=== PATIENT | female | born 1995 | race Two or more races ===

== ENCOUNTER 2020-09-15 08:32 | Outpatient (REF) | payer OTHER, SELFPAY ==
--- NOTE | 2020-09-15 08:38 | US_ITS ---
EXAMINATION: US ABDOMEN COMPLETE CLINICAL INFORMATION: Unspecified abdominal pain. COMPARISON: None TECHNIQUE: Real-time imaging of the abdominal viscera. FINDINGS: PANCREAS: Normal. The visualized pancreatic head and body are normal in appearance. The remainder of the pancreas is obscured from visualization by the overlying bowel gas. ABDOMINAL AORTA: The proximal, mid, and distal segments are normal in caliber. INFERIOR VENA CAVA: Visualized portions are normal. LIVER: There is diffuse increased liver parenchymal echogenicity. No focal hepatic mass is seen. The liver is normal in size and contour. No biliary ductal dilatation. GALLBLADDER: Surgically absent. COMMON BILE DUCT: Normal in caliber measuring 0.3 cm in diameter. RIGHT KIDNEY: Normal. No hydronephrosis. No renal calculi or focal parenchymal lesions. The kidney measures 12.4 cm in maximum dimension. LEFT KIDNEY: At the lower pole, a 4 mm calculus is seen, with twinkle artifact. No hydronephrosis or focal parenchymal lesions. The kidney measures 11.5 cm in maximum dimension. SPLEEN: Normal. The spleen measures 9.6 cm in maximum dimension. FREE FLUID: None. US/US abdomen complete IMPRESSION: 1. There is generalized increase in hepatic echotexture, consistent with fatty infiltration or hepatocellular disease. Please correlate clinically. No focal hepatic mass or intrahepatic biliary dilatation is seen. 2. A 4 mm nonobstructing left renal calculus is seen. No right renal calculus is seen. There is no hydronephrosis bilaterally. 3. Technically limited ultrasound examination of the distal pancreas.
[2020-09-15 10:09] LABS: MANUAL DIFF FLAG NO
[2020-09-15 10:17] LABS: Basophils Percent Auto 0.1 % (0-2); Eosinophils Percent Auto 0.4 % (0-4); Hematocrit 42.2 % (37-47); Hemoglobin 14.5 g/dl (12.0-16.0); Imm Gran Abs Auto 0.02 X10*3/uL (0.00-0.03); Imm Gran Pct Auto 0.2 % (0.0-0.4); Lymphocytes Absolute Auto 1.8 X10*3/uL (1.2-4.9); Lymphocytes Percent Auto 22.3 % (20-40); Mean Corpuscular HGB Conc 34.4 g/dl (31.0-35.0); Mean Corpuscular Hemoglobin 28.8 pg (27.0-33.0); Mean Corpuscular Volume 83.7 fL (80-98); Mean Platelet Volume 12.6 fL (9.4-12.3); Monocytes Absolute Auto 0.6 X10*3/uL (0.1-1.2); Monocytes Percent Auto 6.8 % (2-11); Neutrophils Absolute Auto 5.7 X10*3/uL (2.0-8.3); Neutrophils Percent Auto 70.2 % (45-73); Platelet Count 214 X10*3/uL (160-400); Red Blood Count 5.04 X10*6/uL (4.20-5.50); Red Cell Distribution Width 12.7 % (11.0-16.0); White Blood Count 8.1 X10*3/uL (4.8-10.8)
[2020-09-15 10:51] LABS: Alanine Aminotransferase 36 U/L (0-31); Albumin Level 4.4 g/dL (3.5-5.0); Alkaline Phosphatase 130 U/L (39-117); Anion Gap 11 (12-20); Aspartate Amino Transferase 31 U/L (5-31); Bilirubin Total 1.3 mg/dL (0.0-1.0); Blood Urea Nitrogen 9 mg/dL (9-16); Calcium 9.2 mg/dL (8.4-10.2); Carbon Dioxide 29 mmol/L (22-29); Chloride 105 mmol/L (96-108); Cholesterol 131 mg/dL; Estimated Glomerular Filt Rate > 60; Glucose Fasting 84 mg/dL (60-99); HDL Cholesterol 55 mg/dL; LDL Cholesterol Calculated 62 mg/dl; Potassium 4.4 mmol/l (3.3-5.1); Sodium 141 mmol/L (135-145); Total Protein 8.1 g/dL (6.5-8.0); Triglycerides 70 mg/dL
[2020-09-15 11:03] LABS: Thyroid Stimulating Hormone 15.35 uIU/mL (0.32-4.0)
== END 2020-09-15 08:33 | disposition home or self-care (01) ==
LOC: HO.US 08:32
PROVIDERS: PCP Internal Medicine; Visit Provider Internal Medicine
DX: E03.9 Hypothyroidism, unspecified (principal); R10.9 Unspecified abdominal pain; E11.9 Type 2 diabetes mellitus without complications
CPT/HCPCS: 36415; 76700; 80053; 80061; 84443; 85025

== ENCOUNTER 2021-08-08 08:55 | Outpatient (REF) | payer OTHER, SELFPAY ==
[2021-08-08 10:56] LABS: Thyroid Stimulating Hormone 3.09 uIU/mL (0.32-4.0)
== END 2021-08-08 08:56 | disposition home or self-care (01) ==
LOC: HO.LAB 08:55
PROVIDERS: PCP Internal Medicine; Visit Provider Internal Medicine
DX: E03.9 Hypothyroidism, unspecified (principal)
CPT/HCPCS: 36415; 84443

== ENCOUNTER 2022-05-03 13:20 | Outpatient (REF) | payer OTHER, SELFPAY ==
[2022-05-03 13:35] LABS: MANUAL DIFF FLAG NO
[2022-05-03 13:57] LABS: Basophils Percent Auto 0.2 % (0-2); Eosinophils Percent Auto 0.4 % (0-4); Hematocrit 41.3 % (37.0-47.0); Hemoglobin 14.2 g/dl (12.0-16.0); Imm Gran Abs Auto 0.03 X10*3/uL (0.00-0.03); Imm Gran Pct Auto 0.3 % (0.0-0.4); Lymphocytes Absolute Auto 1.6 X10*3/uL (1.2-4.9); Lymphocytes Percent Auto 16.9 % (20-40); Mean Corpuscular HGB Conc 34.4 g/dl (31.0-35.0); Mean Corpuscular Hemoglobin 28.7 pg (27.0-33.0); Mean Corpuscular Volume 83.4 fL (80.0-98.0); Mean Platelet Volume 12.3 fL (9.4-12.3); Monocytes Absolute Auto 0.5 X10*3/uL (0.1-1.2); Monocytes Percent Auto 5.6 % (2-11); Neutrophils Absolute Auto 7.4 x10*3/uL (2.0-8.3); Neutrophils Percent Auto 76.6 % (45-73); Platelet Count 227 X10*3/uL (160-400); Red Blood Count 4.95 X10*6/uL (4.20-5.50); Red Cell Distribution Width 12.9 % (11.0-16.0); White Blood Count 9.7 X10*3/uL (4.8-10.8)
[2022-05-03 14:22] LABS: Alanine Aminotransferase 20 U/L (0-31); Albumin Level 4.3 g/dL (3.5-5.0); Alkaline Phosphatase 81 U/L (39-117); Anion Gap 10 (12-20); Aspartate Amino Transferase 17 U/L (5-31); Bilirubin Total 0.8 mg/dL (0.0-1.0); Blood Urea Nitrogen 7 mg/dL (9-16); Calcium 9.1 mg/dL (8.4-10.2); Carbon Dioxide 26 mmol/L (22-29); Chloride 106 mmol/L (96-108); Cholesterol 134 mg/dL; Estimated Glomerular Filt Rate > 60; Glucose Fasting 94 mg/dL (60-99); HDL Cholesterol 51 mg/dL; LDL Cholesterol Calculated 67 mg/dl; Sodium 138 mmol/L (135-145); Total Protein 7.7 g/dL (6.5-8.0); Triglycerides 84 mg/dL
[2022-05-03 14:43] LABS: Thyroid Stimulating Hormone 1.52 uIU/mL (0.32-4.0)
== END 2022-05-03 13:21 | disposition home or self-care (01) ==
LOC: HO.LAB 13:20
PROVIDERS: PCP Internal Medicine; Visit Provider Internal Medicine
DX: Z00.00 Encounter for general adult medical examination without abnormal findings (principal); E03.9 Hypothyroidism, unspecified
CPT/HCPCS: 36415; 80053; 80061; 84443; 85025

== ENCOUNTER → 2022-08-27 11:21 | Outpatient (REF) | payer OTHER, SELFPAY ==
--- NOTE | 2022-08-27 11:25 | HM_ITS ---
Conclusion: 1. Patient was monitored for total period of 9 days and 21 hours 2. Baseline was normal sinus rhythm with average heart of 83 beats per minute 3. No significant pauses or bradycardia noted 4. No ectopy noted 5. No patient reported events MTDD
== END ==
LOC: HO.CARD 11:21
PROVIDERS: PCP Internal Medicine; Visit Provider Internal Medicine Cardiovascular Disease
DX: G90.A Postural orthostatic tachycardia syndrome [POTS] (principal)
CPT/HCPCS: 93246

== ENCOUNTER → 2022-09-17 15:54 | Outpatient (REF) | payer OTHER, SELFPAY ==
--- NOTE | 2022-09-17 15:56 | CA_ITS ---
Transthoracic Echocardiogram Patient (Last, First, Middle): Marilynn Henry, Gender: Female Date of : 1995 Age: 27 Procedure Date: 09/17/2022 Procedure Type: Transthoracic Echocardiogram Location: OP Height: 160.02 cm Weight: 99.79 kg BSA: 2.01 m2 Heart Rate: bpm BP: 115 / 78 mmHg Fats And Oils Loader: MERRY Referring MD: Darien Romano MD Sales Training Manager: Darien Romano MD Symptoms: G90.A - Postural orthostatic tachycardia syndrome [POTS] Study Quality: Fair, contrast used ECG Rhythm: Sinus Conclusions: - Essentially normal study Findings Procedure Information Contrast agent, definity, is being given per protocol without apparent complications. Left Ventricle Normal left ventricular size, thickness, and systolic function. The visually estimated ejection fraction is between 60-65%. Diastolic function is normal for age. Right Ventricle Normal right ventricular cavity size and systolic function. Atria Both atria are normal in size. Interatrial shunt cannot be excluded. Aortic Valve The aortic valve structure and function is likely normal. There is no aortic valve stenosis. There is no aortic valve regurgitation. Mitral Valve Normal mitral valve structure and function. There is trace mitral valve regurgitation. There is no mitral valve stenosis. Pulmonic Valve The pulmonic valve was not well visualized. Tricuspid Valve Likely normal tricuspid valve structure and function. Tricuspid regurgitation envelope is inadequate for calculation of right ventricular systolic pressure. Normal right atrial pressure. Great Vessels All visible segments of the aorta are normal in size. The pulmonary artery was not well visualized. Venous The inferior vena cava is normal in size and collapses greater than 50% with inspiration. Pericardium/Pleural There is no evidence of pericardial effusion. Prior Study Comparison No prior study available for comparison. Measurements 2D Linear Measurements IVSd: 0.82 0.6-0.9/0.6-1.0 cm LVIDd: 4.98 3.9-5.3/4.2-5.9 cm LVIDd Index: 2.48 2.4-3.2/2.2-3.1 cm/m2 LVIDs: 2.97 2.0-3.6 cm LVPWd: 0.87 0.7-1.1 cm LA Diam: 3.50 2.7-3.8/3.0-4.0 cm LAIDs Index: 1.74 1.5-2.3 cm/m2 LV Mass: 180.58 67-162/88-224 g LV Mass Index: 89.84 43-95/49-115 g/m2 LVOT Diam: 2.30 3.0+(-)1.3 cm 2D Systolic Function EF 4C: 65.40 >55% EF 2C: 64.40 >55% EF BiP: 64.10 >55% Mitral Valve MV Pk E: 0.74 MV PK A: 0.44 MV Decel Time: 270.00 E/A: 1.70 E'Lateral: 14.50 E'Medial: 12.90 E/E' Med: 5.70 E/E' Lat: 5.10 PHT: 79.00 MVA PHT: 2.78 Decel [place]: 2.73 Aortic Valve AoV Pk [address]: 1.[address]: 0.96 AoV VTI: 0.30 AoV Pk Grad: 7.00 Aov Mn Grad: 4.00 MICHELLE Cont.VTI: 3.[address]: 1.[address]: 0.70 LVOT VTI: 0.22 LVOT Pk Grad: 5.00 LVOT Mn Grad: 2.00 LVOT Diam: 2.30 LVOT Area: 4.15 Diastolic Function MV Pk E: 0.74 MV Pk A: 0.44 E/A: 1.70 E'Medial: 12.90 E/E' Med: 5.70 E' Laterial: 14.50 E/E' Lat: 5.10 Right Ventricle TAPSE (mm): 21.[address]: 10.60 Tricuspid Valve RA Press: 3.00 Great Vessels Aorta Sinus of Valsalva: 2.74 2.0-3.[address] [place]: 2.00 1.7-3.4 cm Ao Asc: 2.70 2.1-3.4 cm Updated in Other Vendor System with Status of Final Darien Romano MD electronically signed on 09/20/2022 5:03:33 PM with status of Final
== END ==
LOC: HO.CARD 15:54
PROVIDERS: PCP Internal Medicine; Visit Provider Internal Medicine Cardiovascular Disease
DX: G90.A Postural orthostatic tachycardia syndrome [POTS] (principal)
CPT/HCPCS: 93306; Q9957

== ENCOUNTER 2023-01-25 09:38 | Outpatient (REF) | payer SELFPAY ==
[2023-01-25 09:46] LABS: MANUAL DIFF FLAG NO
[2023-01-25 10:55] LABS: Basophils Percent Auto 0.2 % (0-2); Eosinophils Percent Auto 0.4 % (0-4); Hematocrit 42.3 % (37.0-47.0); Hemoglobin 14.5 g/dl (12.0-16.0); Imm Gran Abs Auto 0.02 X10*3/uL (0.00-0.03); Imm Gran Pct Auto 0.2 % (0.0-0.4); Lymphocytes Absolute Auto 1.8 X10*3/uL (1.2-4.9); Lymphocytes Percent Auto 21.5 % (20-40); Mean Corpuscular HGB Conc 34.3 g/dl (31.0-35.0); Mean Corpuscular Hemoglobin 28.7 pg (27.0-33.0); Mean Corpuscular Volume 83.6 fL (80.0-98.0); Monocytes Absolute Auto 0.7 X10*3/uL (0.1-1.2); Monocytes Percent Auto 8.2 % (2-11); Neutrophils Absolute Auto 5.8 x10*3/uL (2.0-8.3); Neutrophils Percent Auto 69.5 % (45-73); Platelet Count 236 X10*3/uL (160-400); Red Blood Count 5.06 X10*6/uL (4.20-5.50); Red Cell Distribution Width 12.6 % (11.0-16.0); White Blood Count 8.4 X10*3/uL (4.8-10.8)
[2023-01-25 11:47] LABS: Alanine Aminotransferase 48 U/L (0-31); Albumin Level 4.2 g/dL (3.5-5.0); Alkaline Phosphatase 86 U/L (39-117); Anion Gap 13 (12-20); Aspartate Amino Transferase 36 U/L (5-31); Bilirubin Total 1.2 mg/dL (0.0-1.0); Blood Urea Nitrogen 6 mg/dL (9-16); Calcium 8.7 mg/dL (8.4-10.2); Carbon Dioxide 23 mmol/L (22-29); Chloride 108 mmol/L (96-108); Cholesterol 124 mg/dL; Estimated Glomerular Filt Rate > 60; Glucose Fasting 85 mg/dL (60-99); HDL Cholesterol 50 mg/dL; LDL Cholesterol Calculated 65 mg/dl; Potassium 4.1 mmol/L (3.3-5.1); Sodium 140 mmol/L (135-145); Total Protein 7.5 g/dL (6.5-8.0); Triglycerides 45 mg/dL
[2023-01-25 12:17] LABS: Folate 6.6 ng/mL (> or = 4.0); Vitamin B12 343 pg/mL (200-900)
== END 2023-01-25 09:39 | disposition home or self-care (01) ==
LOC: HO.LAB 09:38
PROVIDERS: PCP Nurse Practitioner Family; Visit Provider Nurse Practitioner Family
DX: E03.9 Hypothyroidism, unspecified (principal); E66.01 Morbid (severe) obesity due to excess calories; R79.89 Other specified abnormal findings of blood chemistry; K76.0 Fatty (change of) liver, not elsewhere classified; E55.9 Vitamin D deficiency, unspecified; G90.A Postural orthostatic tachycardia syndrome [POTS]; R00.0 Tachycardia, unspecified; R20.2 Paresthesia of skin; M06.9 Rheumatoid arthritis, unspecified
CPT/HCPCS: 36415; 80053; 80061; 82306; 82607; 82746; 84443; 85025

== ENCOUNTER → 2023-04-08 14:39 | Outpatient (BNVA) | payer OTHER, SELFPAY | PROVIDERS: PCP Internal Medicine; Referring Provider Internal Medicine; Visit Provider Internal Medicine Cardiovascular Disease ==

== ENCOUNTER 2023-06-25 08:40 | Outpatient (REF) | payer OTHER, SELFPAY ==
--- NOTE | ~2023-06-25 | XR_ITS ---
EXAMINATION: XR ANKLE, RIGHT XR ANKLE, LEFT XR FOOT, RIGHT XR FOOT, LEFT CLINICAL INFORMATION: Rheumatoid arthritis, unspecified. COMPARISON: None available. TECHNIQUE: AP, lateral, and mortise views of each ankle and AP, lateral, and oblique views of each foot. FINDINGS: RIGHT ANKLE: No fracture. Alignment is anatomic. Ankle mortise is symmetric. Joint spaces are maintained. No ankle joint effusion. No erosions. Soft tissues are normal. A bone island is evident within the distal tibia at the posterior aspect of the plafond. No suspicious osseous lesions. LEFT ANKLE: No fracture. Alignment is anatomic. Ankle mortise is symmetric. Joint spaces are maintained. No ankle joint effusion. Soft tissues are normal. No erosions. Small enthesopathic spur is present at the Achilles tendon insertion on the calcaneus. RIGHT FOOT: No fracture. Alignment is anatomic. No erosions. Joint spaces are maintained. Soft tissues are normal. Bipartite os peroneum. Small accessory navicular, type I. LEFT FOOT: No fracture. Alignment is anatomic. No erosions. Joint spaces are maintained. Soft tissues are normal. Small os peroneum. No erosions. Sclerotic focus at the 2nd metatarsal neck may correspond to a bone island. XR/XR foot RT min 3V IMPRESSION: No evidence of an inflammatory arthropathy in the ankles and feet. Joints appear well-preserved. No acute osseous findings.
--- NOTE | ~2023-06-25 | XR_ITS ---
EXAMINATION: XR ANKLE, RIGHT XR ANKLE, LEFT XR FOOT, RIGHT XR FOOT, LEFT CLINICAL INFORMATION: Rheumatoid arthritis, unspecified. COMPARISON: None available. TECHNIQUE: AP, lateral, and mortise views of each ankle and AP, lateral, and oblique views of each foot. FINDINGS: RIGHT ANKLE: No fracture. Alignment is anatomic. Ankle mortise is symmetric. Joint spaces are maintained. No ankle joint effusion. No erosions. Soft tissues are normal. A bone island is evident within the distal tibia at the posterior aspect of the plafond. No suspicious osseous lesions. LEFT ANKLE: No fracture. Alignment is anatomic. Ankle mortise is symmetric. Joint spaces are maintained. No ankle joint effusion. Soft tissues are normal. No erosions. Small enthesopathic spur is present at the Achilles tendon insertion on the calcaneus. RIGHT FOOT: No fracture. Alignment is anatomic. No erosions. Joint spaces are maintained. Soft tissues are normal. Bipartite os peroneum. Small accessory navicular, type I. LEFT FOOT: No fracture. Alignment is anatomic. No erosions. Joint spaces are maintained. Soft tissues are normal. Small os peroneum. No erosions. Sclerotic focus at the 2nd metatarsal neck may correspond to a bone island. XR/XR foot LT min 3V IMPRESSION: No evidence of an inflammatory arthropathy in the ankles and feet. Joints appear well-preserved. No acute osseous findings.
--- NOTE | ~2023-06-25 | XR_ITS ---
EXAMINATION: XR ANKLE, RIGHT XR ANKLE, LEFT XR FOOT, RIGHT XR FOOT, LEFT CLINICAL INFORMATION: Rheumatoid arthritis, unspecified. COMPARISON: None available. TECHNIQUE: AP, lateral, and mortise views of each ankle and AP, lateral, and oblique views of each foot. FINDINGS: RIGHT ANKLE: No fracture. Alignment is anatomic. Ankle mortise is symmetric. Joint spaces are maintained. No ankle joint effusion. No erosions. Soft tissues are normal. A bone island is evident within the distal tibia at the posterior aspect of the plafond. No suspicious osseous lesions. LEFT ANKLE: No fracture. Alignment is anatomic. Ankle mortise is symmetric. Joint spaces are maintained. No ankle joint effusion. Soft tissues are normal. No erosions. Small enthesopathic spur is present at the Achilles tendon insertion on the calcaneus. RIGHT FOOT: No fracture. Alignment is anatomic. No erosions. Joint spaces are maintained. Soft tissues are normal. Bipartite os peroneum. Small accessory navicular, type I. LEFT FOOT: No fracture. Alignment is anatomic. No erosions. Joint spaces are maintained. Soft tissues are normal. Small os peroneum. No erosions. Sclerotic focus at the 2nd metatarsal neck may correspond to a bone island. XR/XR ankle RT min 3V IMPRESSION: No evidence of an inflammatory arthropathy in the ankles and feet. Joints appear well-preserved. No acute osseous findings.
--- NOTE | ~2023-06-25 | XR_ITS ---
EXAMINATION: XR HAND/WRIST, RIGHT XR HAND/WRIST, LEFT CLINICAL INFORMATION: Rheumatoid arthritis. COMPARISON: None available. TECHNIQUE: PA, lateral, oblique, and scaphoid views of the each hand and wrist. FINDINGS: RIGHT HAND/WRIST: No fracture or malalignment. Bone mineralization is normal. No erosions. Joint spaces appear relatively well-preserved. No periostitis or soft tissue calcifications. Scaphoid is intact. LEFT HAND/WRIST: The bones and soft tissues are normal. No fracture. Alignment is anatomic. Joint spaces are maintained. No erosions or soft tissue calcifications. XR/XR hand wrist RT IMPRESSION: Normal radiographs of the hands and wrists. No evidence of rheumatoid arthritis.
--- NOTE | ~2023-06-25 | XR_ITS ---
EXAMINATION: XR HAND/WRIST, RIGHT XR HAND/WRIST, LEFT CLINICAL INFORMATION: Rheumatoid arthritis. COMPARISON: None available. TECHNIQUE: PA, lateral, oblique, and scaphoid views of the each hand and wrist. FINDINGS: RIGHT HAND/WRIST: No fracture or malalignment. Bone mineralization is normal. No erosions. Joint spaces appear relatively well-preserved. No periostitis or soft tissue calcifications. Scaphoid is intact. LEFT HAND/WRIST: The bones and soft tissues are normal. No fracture. Alignment is anatomic. Joint spaces are maintained. No erosions or soft tissue calcifications. XR/XR hand wrist LT IMPRESSION: Normal radiographs of the hands and wrists. No evidence of rheumatoid arthritis.
--- NOTE | ~2023-06-25 | XR_ITS ---
EXAMINATION: XR ANKLE, RIGHT XR ANKLE, LEFT XR FOOT, RIGHT XR FOOT, LEFT CLINICAL INFORMATION: Rheumatoid arthritis, unspecified. COMPARISON: None available. TECHNIQUE: AP, lateral, and mortise views of each ankle and AP, lateral, and oblique views of each foot. FINDINGS: RIGHT ANKLE: No fracture. Alignment is anatomic. Ankle mortise is symmetric. Joint spaces are maintained. No ankle joint effusion. No erosions. Soft tissues are normal. A bone island is evident within the distal tibia at the posterior aspect of the plafond. No suspicious osseous lesions. LEFT ANKLE: No fracture. Alignment is anatomic. Ankle mortise is symmetric. Joint spaces are maintained. No ankle joint effusion. Soft tissues are normal. No erosions. Small enthesopathic spur is present at the Achilles tendon insertion on the calcaneus. RIGHT FOOT: No fracture. Alignment is anatomic. No erosions. Joint spaces are maintained. Soft tissues are normal. Bipartite os peroneum. Small accessory navicular, type I. LEFT FOOT: No fracture. Alignment is anatomic. No erosions. Joint spaces are maintained. Soft tissues are normal. Small os peroneum. No erosions. Sclerotic focus at the 2nd metatarsal neck may correspond to a bone island. XR/XR ankle LT min 3V IMPRESSION: No evidence of an inflammatory arthropathy in the ankles and feet. Joints appear well-preserved. No acute osseous findings.
[2023-06-25 10:12] LABS: MANUAL DIFF FLAG NO
[2023-06-25 10:37] LABS: Basophils Percent Auto 0.1 % (0-2); Eosinophils Percent Auto 0.3 % (0-4); Hematocrit 41.9 % (37.0-47.0); Hemoglobin 14.6 g/dl (12.0-16.0); Imm Gran Abs Auto 0.03 X10*3/uL (0.00-0.03); Imm Gran Pct Auto 0.3 % (0.0-0.4); Lymphocytes Absolute Auto 1.2 X10*3/uL (1.2-4.9); Lymphocytes Percent Auto 11.4 % (20-40); Mean Corpuscular HGB Conc 34.8 g/dl (31.0-35.0); Mean Corpuscular Hemoglobin 28.7 pg (27.0-33.0); Mean Corpuscular Volume 82.3 fL (80.0-98.0); Mean Platelet Volume 11.5 fL (9.4-12.3); Monocytes Absolute Auto 0.7 X10*3/uL (0.1-1.2); Monocytes Percent Auto 6.3 % (2-11); Neutrophils Absolute Auto 8.7 x10*3/uL (2.0-8.3); Neutrophils Percent Auto 81.6 % (45-73); Platelet Count 208 X10*3/uL (160-400); Red Blood Count 5.09 X10*6/uL (4.20-5.50); Red Cell Distribution Width 12.9 % (11.0-16.0); White Blood Count 10.6 X10*3/uL (4.8-10.8)
[2023-06-25 11:01] LABS: Rheumatoid Factor < 13.0 IU/mL (<15.0)
[2023-06-25 11:03] LABS: Alanine Aminotransferase 37 U/L (0-31); Albumin Level 4.2 g/dL (3.5-5.0); Alkaline Phosphatase 94 U/L (39-117); Anion Gap 11 (12-20); Aspartate Amino Transferase 28 U/L (5-31); Bilirubin Total 1.1 mg/dL (0.0-1.0); Blood Urea Nitrogen 8 mg/dL (9-16); C Reactive Protein 0.87 mg/dL (< or = 0.50); Calcium 9.3 mg/dL (8.4-10.2); Carbon Dioxide 18 mmol/L (22-29); Chloride 113 mmol/L (96-108); Estimated Glomerular Filt Rate > 60; Glucose Random 90 mg/dL (60-115); Potassium 3.5 mmol/L (3.3-5.1); Sodium 138 mmol/L (135-145)
[2023-06-25 11:16] LABS: Appearance Urine Turbid; Color Urine Yellow; Glucose Urine UA Negative (Negative); Leukocyte Esterase Urine Trace (Negative); Nitrite Urine Negative (Negative); PH 8.5 (5.0-9.0); Specific Gravity - Urine 1.015 (1.005-1.025); UMIC TRIGGER UA YES; Urine Blood Negative (Negative); Urine Ketones Negative (Negative); Urine Protein Negative (Neg-Trace)
[2023-06-25 11:19] LABS: HBc Num1 0.14 S/CO (0.00-0.79); HBsAGNum1 0.28 S/CO (0.00-0.99); Hepatitis A Antibody IgM 0.21 Index (0-0.79); Hepatitis B Core Antibody Nonreactive (Nonreactive); Hepatitis B Surface Antigen Negative (Negative); ~HepC Num1 0.18 S/CO (0.00-0.79); ~Hepatitis A Antibody IgM Nonreactive (Nonreactive); ~Hepatitis B Surface Antibody REACTIVE (Nonreactive); ~Hepatitis C Antibody Nonreactive (Nonreactive)
[2023-06-25 11:21] LABS: Erythrocyte Sedimentation Rate 6 MM/HR (0-20)
[2023-06-25 11:22] LABS: Bacteria Urine None Seen (None Seen); Hyaline Casts Urine 0-2 /LPF (0-2); RBC Urine 0-2 /HPF (0-2); Squamous Epithelial Cell Urine 0-2 /HPF (0-2); WBC Urine 0-5 /HPF (0-5)
[2023-06-25 12:09] LABS: Total Protein Urine Random < 7 mg/dL (<12)
[2023-06-26 15:42] LABS: Complement C3 98 mg/dL (83-193)
[2023-06-27 14:54] LABS: Prot Elec - Albumin 4.3 g/dL (3.8-4.8); Prot Elec - Alpha1 0.3 g/dL (0.2-0.3); Prot Elec - Alpha2 0.6 g/dL (0.5-0.9); Prot Elec - Beta 1 0.4 g/dL (0.4-0.6); Prot Elec - Beta 2 0.3 g/dL (0.2-0.5); Prot Elec - Total Protein 7.9 g/dL (6.1-8.1)
[2023-06-27 15:04] LABS: Anti DNA DS Antibody 1 IU/mL; Antibody to SS-A Antigen <1.0 NEG AI (<1.0 NEG); Antibody to SS-B Antigen <1.0 NEG AI (<1.0 NEG); SM/Ribonucleoprotein Ab <1.0 NEG AI (<1.0 NEG); Smith Protein <1.0 NEG AI (<1.0 NEG)
[2023-06-27 15:43] LABS: Cyclic Citrullinated Peptide <16 UNITS
[2023-06-27 17:43] LABS: TS Negative Control Passed; TS Panel A 0; TS Panel B 0; TS Positive Control Passed; TSpotTB Negative (Negative)
[2023-06-30 09:03] LABS: Anti Nuclear Antibody Screen NEGATIVE (NEGATIVE)
[2023-06-30 15:33] LABS: Vitamin D 25-OH, D2 <4 ng/mL; Vitamin D 25-OH, D3 18 ng/mL; Vitamin D 25-OH, Total 18 ng/mL (30-100)
[2023-06-30 18:34] LABS: VITAMIN D (1,25 OH) D3 38 pg/mL; Vit D (1,25-Dihydroxy) Total 38 pg/mL (18-72); Vitamin D (1,25 OH) D2 <8 pg/mL
[2023-07-01 01:58] LABS: Angiotensin Converting Enzyme 13.9 U/L (9-67)
[2023-07-01 14:49] LABS: IgA 9 mg/dL (47-310); IgG 2246 mg/dL (600-1640); IgM 82 mg/dL (50-300)
[2023-07-03 17:04] LABS: Centromere Protein A Ab <11 SI (<11); Centromere Protein B Ab <11 SI (<11); Fibrillarin Ab <11 SI (<11); PM SCL 100 Ab <11 SI (<11); PM SCL 75 Ab <11 SI (<11); RNA Polymerase III RP11 Ab <11 SI (<11); RNA Polymerase III RP155 Ab <11 SI (<11); SCL-70 Extractable Nuclear Ab <11 SI (<11); Th-To Ab <11 SI (<11); U1 SNRNP RNP 70KD <11 SI (<11); U1 SNRNP RNP A <11 SI (<11); U1 SNRNP RNP C <11 SI (<11)
== END 2023-06-25 08:41 | disposition home or self-care (01) ==
LOC: HO.XRAY 08:40
PROVIDERS: PCP Internal Medicine; Visit Provider Student in an Organized Health Care Education/Training Program
DX: Z11.59 Encounter for screening for other viral diseases (principal); Z13.21 Encounter for screening for nutritional disorder; Z11.7 Encounter for testing for latent tuberculosis infection; M06.9 Rheumatoid arthritis, unspecified; M32.9 Systemic lupus erythematosus, unspecified; D86.9 Sarcoidosis, unspecified; M34.9 Systemic sclerosis, unspecified; M06.09 Rheumatoid arthritis without rheumatoid factor, multiple sites; I73.00 Raynaud's syndrome without gangrene; Z72.89 Other problems related to lifestyle; E55.9 Vitamin D deficiency, unspecified
CPT/HCPCS: 36415; 73110; 73130; 73610; 73630; 80053; 81001; 82164; 82306; 82570; 82652; 82784; 84156; 84165; 84182; 85025; 85652; 86038; 86140; 86160; 86200; 86225; 86235; 86334; 86431; 86481; 86704; 86706; 86709; 86803; 87340

== ENCOUNTER 2023-06-25 08:40 | Outpatient (AMB) | payer OTHER, SELFPAY ==
[2023-06-25 08:52] VITALS: BP 116/78; PULSE 88; O2SAT 99; BMI 41.8
--- NOTE | 2023-06-25 08:52 | A.OFFVIS_ITS ---
Intake Vital Signs 06/25/23 08:52 Height 5 ft 3 in Weight 235 lb 14.314 oz BMI 41.8 BP 116/78 Blood Pressure Location Rt brachial Position Sitting Pulse 88 Pulse Source Pulse Oximeter Pulse Oximetry (%) 99 Intake Visit Reasons: RA Intake Note: New pt presents today for RA consult, referred by packager machine. Reports facial rash since 2019 Student Admissions Clerk Required: No Accompanied by: Self / Same As Patient Allergies Sulfa (Sulfonamide Antibiotics) Allergy (Unknown, Verified 06/25/23 08:59) anaphylaxis Medication List - Last Reconciled 06/25/23 by Kathleen Reed MD acetazolamide ER 500 mg PO BID blood pressure test kit-large ([facility] Blood Pressure Monitor kit) As directed diclofenac sodium 1% 1 ea topical QID levothyroxine 200 mcg PO DAILY topiramate 25 mg PO BID HPI HPI Comments History of Present Illness Details This is a 28-year-old female who was referred for evaluation of rheumatoid arthritis. Patient stated that at age 10 she was having right hand pain and swelling as well as change in color to read and blue. She was evaluated at [facility] and received treatments for about 2 years. Stated that her disease has been in remission for many years. Over the last 2-3 years patient has been having recurrent pain in her hands, mostly the right hand, as well as both feet. She would have a couple of episodes a month when she would wake up with pain and stiffness of her right hand, it lasts about 2 days, then self resolves. She continues to have chronic pain in her right 3rd and 4th fingers in between the attacks. Since 2019 she has been having in red skin rash on her cheeks. The rash is not painful or itchy but feels tight. Rashes not particularly worse in the sun. She denies any history of DVT/PE. Denies any mouth ulcers or blood or froth in urine. States that since she was a child her fingers which change color to white, blue and purple in the cold. At home this would happen in the colder winter months when she reaches into the freezer and she would have to rub her hands together to warm them up, sometimes she would put them under warm water. She never had to go to the emergency room for this. Denies ever having any digital ulcers. [facility] Medical History (Updated 06/25/23 @ 09:59 by Kathleen Reed MD) Dental abscess Otitis media Morbid obesity Ear pain History of recurrent ear infection Sinusitis Hypothyroidism Rheumatoid arthritis Surgical History History of surgery History of tumor History of removal of cyst History of cholecystectomy Family History Father No problems noted. Mother Rheumatoid arthritis Sarcoidosis COPD (chronic obstructive pulmonary disease) Thyroid nodule Family/Other Family history of lupus erythematosus Social History Household Members: Spouse and Children Housing: Apartment Alcohol intake: current Alcohol intake frequency: holidays/special occasions only Patient Tobacco Use Status: Never used Tobacco e-Cigarette/Vaping Use: Never Used Second Hand Smoke Exposure: No service: No Current occupational status: employed Current occupation: [employer] Cognitive needs: No Hearing needs: No Vision needs: No Female Reproductive History Menstrual Total pregnancies: 2 Number of Living Children: 1 Ab spontaneous: 1 Review of Systems Const Reports fatigue Musc Reports arthralgias Skin/Breast Denies photosensitivity and Reports rash Endo Reports fatigue Physical Exam Vital Signs: Last Vital Signs Pulse 88 06/25/23 08:52 BP 116/78 06/25/23 08:52 Pulse Ox 99 06/25/23 08:52 BMI result Body Mass Index 41.8 Const General: cooperative, healthy appearing and comfortable Nutritional Appearance: obese Orientation/consciousness: patient oriented x3 Limitations: no limitations HEENT Head: Yes normocephalic and Yes atraumatic Mouth: moist mucous membranes Resp Effort & Inspection: normal respiratory effort and able to speak in complete sentences Auscultation: clear to auscultation bilaterally Cardio Rate: regular rate Rhythm: regular rhythm Heart sounds: S1 normal heart sound present Neuro General: patient oriented x3 Extrem Other: Right 3rd and 4th MCP tenderness, positive MCP squeeze test right hand Right 3rd and 4th PIP tenderness and tenderness in between MCPs and PIP is No active synovitis otherwise Normal range of motion of both elbows and shoulders without pain No ankle swelling or tenderness bilaterally Negative MTP squeeze test bilaterally Normal nailfold capillaroscopy Assessment & Plan Assessment & Plan (1) Rheumatoid arthritis: Code(s): M06.9 - Rheumatoid arthritis, unspecified Qualifiers: Rheumatoid arthritis location: multiple sites Rheumatoid factor presence: without rheumatoid factor Qualified Code(s): M06.09 - Rheumatoid arthritis without rheumatoid factor, multiple sites Plan: This is a 28-year-old female presents for evaluation of episodic polyarthralgias. 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 Her mother and maternal grandmother have RA, mother has sarcoidosis. Will order comprehensive serology to screen for underlying autoimmune rheumatic disease (2) Raynaud phenomenon: Code(s): I73.00 - Raynaud's syndrome without gangrene Qualifiers: Raynaud?s-associated gangrene presence: without gangrene Qualified Code(s): I73.00 - Raynaud's syndrome without gangrene Plan: Will check scleroderma antibodies Plan I spent 46 minutes reviewing patient's chart, evaluating patient, ordering diagnostic workup, counseling patient and documenting in the chart Orders: Orders XR hand wrist LT Today M06.9 - Rheumatoid arthritis, unspecified XR ankle LT min 3V Today M06.9 - Rheumatoid arthritis, unspecified C Reactive Protein Today M06.9 - Rheumatoid arthritis, unspecified Erythrocyte Sedimentation Rate Today M06.9 - Rheumatoid arthritis, unspecified Immunofixation Pnl, Serum Today M06.9 - Rheumatoid arthritis, unspecified Protein Electrophoresis, Serum Today M06.9 - Rheumatoid arthritis, unspecified Rheumatoid Factor Today M06.9 - Rheumatoid arthritis, unspecified Cyclic Citrullinated Peptide Today M06.9 - Rheumatoid arthritis, unspecified RICHARD Reflex Titer and Pattern Today M32.9 - Systemic lupus erythematosus, unspecified Anti Extractable Nuclear Ag Today M32.9 - Systemic lupus erythematosus, unspecified Anti DNA DS Antibody Today M32.9 - Systemic lupus erythematosus, unspecified Complement C3 Today M32.9 - Systemic lupus erythematosus, unspecified Vitamin D 25-OH (D2 and D3) Today Z13.21 - Encounter for screening for nutritional disorder Vitamin D 1,25 OH LC/MS/MS Today D86.9 - Sarcoidosis, unspecified XR hand wrist RT Today M06.9 - Rheumatoid arthritis, unspecified XR foot LT min 3V Today M06.9 - Rheumatoid arthritis, unspecified XR foot RT min 3V Today M06.9 - Rheumatoid arthritis, unspecified XR ankle RT min 3V Today M06.9 - Rheumatoid arthritis, unspecified Complete Blood Count Auto Diff Today M06.9 - Rheumatoid arthritis, unspecified Comprehensive Met. Panel Today M06.9 - Rheumatoid arthritis, unspecified Hepatitis A,B,C Profile Today Z11.59 - Encounter for screening for other viral diseases T Spot TB Today Z11.7 - Encounter for testing for latent tuberculosis infection Complement C4 Today M32.9 - Systemic lupus erythematosus, unspecified Protein Creatinine Ratio, Ur Today M32.9 - Systemic lupus erythematosus, unspecified Sjogren's Antibodies Today M32.9 - Systemic lupus erythematosus, unspecified UA w Microscopic Today M32.9 - Systemic lupus erythematosus, unspecified Scleroderma 12 Panel Today M34.9 - Systemic sclerosis, unspecified Angiotensin Converting Enzyme Today D86.9 - Sarcoidosis, unspecified Coding Level of Care Code New Pt Level 4 (35610) Diagnoses Rheumatoid arthritis of multiple sites with negative rheumatoid factor M06.09 Rheumatoid arthritis location: multiple sites Rheumatoid factor presence: without rheumatoid factor Raynaud's phenomenon without gangrene I73.00 Raynaud?s-associated gangrene presence: without gangrene
== END 2023-06-25 09:27 | disposition home or self-care (01) ==
PROVIDERS: PCP Internal Medicine; Visit Provider Student in an Organized Health Care Education/Training Program
DX: M06.09 Rheumatoid arthritis without rheumatoid factor, multiple sites (principal); I73.00 Raynaud's syndrome without gangrene
CPT/HCPCS: 99204

== ENCOUNTER 2023-08-01 15:26 | Outpatient (AMB) | payer OTHER, SELFPAY ==
[2023-08-01 15:29] VITALS: BP 132/88; PULSE 102; O2SAT 99; BMI 43.2
--- NOTE | 2023-08-01 15:29 | MHC.PC.OV ---
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 Allergies Sulfa (Sulfonamide Antibiotics) Allergy (Unknown, Verified 08/01/23 15:35) anaphylaxis Medication List - Last Reconciled 08/01/23 by CATY Macias acetazolamide ER 500 mg PO BID blood pressure test kit-large ([facility]ocate Blood Pressure Monitor kit) As directed diclofenac sodium 1% 1 ea topical QID levothyroxine 200 mcg PO DAILY topiramate 25 mg PO BID Tobacco use date assessed: 08/01/23 Dental Screening Dental Screen Date: 08/01/23 Did you have a dental visit in the last 12 months?: Yes Did you have a dental problem in the last 6 months where you did not have access to dental care?: No Was dental information given to patient?: Patient has dentist HPI 6 month f/u HPI Details Patient is a 28-year-old female who presents today for a routine follow-up.? Medical history significant for pseudotumor cerebri syndrome - shunt is not working - on Diamox - headaches better on Diamox - followed by [facility], morbid obesity - interested in dietitian referral, paresthesia in fingers and toes which is intermittent since starting Diamox 04/2022, hypothyroidism, fatty liver, migraine headache - followed by Neurology was started on topiramate and Aimovig injection.? Patient denies shortness of breath or chest pain in the office today. Patient has requested gynecology referral for a Pap smear and she also has Mirena which was placed in 2019. Patient is accompanied by her mother. Patient was seen by [facility] and she does not have POTS. 09/2020 US/US abdomen complete IMPRESSION: ? 1. There is generalized increase in hepatic echotexture, consistent with fatty infiltration or hepatocellular disease. Please correlate clinically. No focal hepatic mass or intrahepatic biliary dilatation is seen. ? 2. A 4 mm nonobstructing left renal calculus is seen. No right renal calculus is seen. There is no hydronephrosis bilaterally. ? 3. Technically limited ultrasound examination of the distal pancreas. [facility] Medical History POTS (postural orthostatic tachycardia syndrome) Dental abscess Otitis media Morbid obesity Ear pain History of recurrent ear infection Sinusitis Hypothyroidism Rheumatoid arthritis Surgical History History of surgery History of tumor History of removal of cyst History of cholecystectomy Family History Father No problems noted. Mother Rheumatoid arthritis Sarcoidosis COPD (chronic obstructive pulmonary disease) Thyroid nodule Family/Other Family history of lupus erythematosus Social History Household Members: Spouse and Children Housing: Apartment Alcohol intake: current Alcohol intake frequency: holidays/special occasions only Patient Tobacco Use Status: Never used Tobacco e-Cigarette/Vaping Use: Never Used Second Hand Smoke Exposure: No service: No Current occupational status: employed Current occupation: N Cognitive needs: No Hearing needs: No Vision needs: No Questionnaire Thrive Questionnaire Date Thrive assessed: 11/07/22 AUDIT C Alcohol Use Questionnaire (AUDIT-C) 1. How often do you have a drink containing alcohol?: Monthly or less (social) 2. How many drinks containing alcohol do you have on a typical day when you are drinking?: 1 or 2 (0) 3. How often do you have six or more drinks on one occasion?: Never Total Score: 1 Score Reviewed/Action Taken: No NILESH-7 AMB Questionnaire NILESH-7 Date NILESH - 7 assessed: 11/07/22 Source: Developed by Drs. Bill Ayala, Grace Graves, Rod Michael and colleagues, with an educational trina from [employer]. Review of Systems Const Denies body aches, Denies chills, Reports fatigue, Denies fever(s) and Denies headache(s) Eyes Denies change in vision ENT Denies dizziness, Denies otalgia, Denies headache(s), Denies nasal discharge, Denies sinus pain and Denies sore throat Card Denies chest pain, Denies edema, Reports lightheadedness (Intermittent) and Reports dyspnea (Intermittent) Resp Denies cough and Reports dyspnea (Intermittent) GI Denies constipation, Denies diarrhea, Denies nausea and Denies vomiting Denies dysuria Musc Denies myalgias, Denies arthralgias, Denies joint swelling, Denies numbness and Reports tingling Skin/Breast Denies lesions and Reports rash Neuro Denies dizziness, Denies headache(s), Denies numbness and Reports tingling Endo Reports fatigue Physical exam (Primary Care) Vital Signs: Last Vital Signs Pulse 102 H 08/01/23 15:29 BP 132/88 08/01/23 15:29 Pulse Ox 99 08/01/23 15:29 Oxygen Delivery Method Room Air 08/01/23 15:29 BMI result Body Mass Index 43.2 Tobacco/Smoking Status: Tobacco use Status Tobacco use date assessed 08/01/23 08/01/23 15:34 Patient Tobacco Use Status Never used Tobacco 08/01/23 15:34 e-Cigarette/Vaping Use Never Used 08/01/23 15:34 Thrive Assessment: Date of Thrive Assessment Date Thrive assessed 11/07/22 08/01/23 15:34 Const General: cooperative and no acute distress Orientation/consciousness: patient oriented x3 HENMT Head: Yes normocephalic and Yes atraumatic Face and sinus: Yes sinuses nontender Mouth: oropharynx normal and moist mucous membranes Throat: Yes posterior oropharynx normal Eyes General: appearance normal, both eyes and all related structures Neck Neck: Yes normal visual inspection, Yes full ROM and Yes no lymphadenopathy Thyroid: Thyroid normal Resp Effort & Inspection: normal respiratory effort and able to speak in complete sentences Auscultation: clear to auscultation bilaterally, no crackles, no rales, no rhonchi and no wheezes Cardio Rate: regular rate Rhythm: regular rhythm Heart sounds: S1 normal heart sound present, S2 normal heart sound present and no murmurs GI Auscultation: normal bowel sounds Neuro General: patient oriented x3 Gait exam (Neuro): Normal gait present Extrem General: Yes full ROM and No edema Office Procedures Flu Questionnaire Does the patient have a severe egg allergy?: No Does the patient have severe life threatening allergies?: No Does the patient have a fever or illness today?: No Has the patient ever had Guillain-Jackson Syndrome?: No Has the patient ever had any past reaction to a flu shot?: No Immunizations flu vacc [id number] 6mos up(PF) 60 mcg(15 mcgx4)/0.5 mL IM syringe Performing Provider: CATY Macias Performing Location: [facility] [place] [facility] Administered by: KEELY Miller on 08/01/23 15:38 Dose Route Admin Location Dispensed Lot Number Expiration Date 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 0.5 mL IM Left Deltoid 0.5 mL [id number] 08/01/23 89315-897-53 [employer] VIS Given Date VIS Provided VIS Publication Date 08/01/23 Single Vaccine 21 Eligibility Eligibility Date Funding Source Not [facility] Eligible 08/01/23 Private Assessment and Plan Assessment & Plan (1) Pseudotumor cerebri syndrome: Code(s): G93.2 - Benign intracranial hypertension Plan: Continue to follow-up with [facility] every 6 months On Diamox (2) Hypothyroidism: Code(s): E03.9 - Hypothyroidism, unspecified Plan: Levothyroxine 200 mcg daily Encouraged patient to complete her thyroid blood work (3) Fatty liver: Code(s): K76.0 - Fatty (change of) liver, not elsewhere classified Plan: Low-cholesterol diet and weight loss (4) Low vitamin D level: Code(s): R79.89 - Other specified abnormal findings of blood chemistry Plan: Vitamin-D level 18 06/2023 Start vitamin-D (5) Morbid obesity with BMI of 40.0-44.9, adult: Code(s): E66.01 - Morbid (severe) obesity due to excess calories; Z68.41 - Body mass index [BMI] 40.0-44.9, adult Plan: Healthy food choices and exercise as tolerated Dietitian referral (6) Cervical cancer screening: Code(s): Z12.4 - Encounter for screening for malignant neoplasm of cervix Plan: Gynecology referral (7) Migraine headache: Code(s): G43.909 - Migraine, unspecified, not intractable, without status migrainosus Plan: Continue to follow-up with [facility] Topiramate and aimovig injection (8) Rheumatoid arthritis: Code(s): M06.9 - Rheumatoid arthritis, unspecified Qualifiers: Rheumatoid arthritis location: multiple sites Rheumatoid factor presence: without rheumatoid factor Qualified Code(s): M06.09 - Rheumatoid arthritis without rheumatoid factor, multiple sites Plan: Continue to follow-up with [facility] Dr. 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 Z12.4 - Encounter for screening for malignant neoplasm of cervix, Z97.5 - Presence of (intrauterine) contraceptive device Medications: New cholecalciferol (vitamin D3) 50 mcg PO DAILY 90 tabs 0RF R79.89 - Other specified abnormal findings of blood chemistry Coding Level of Care Code Est Pt Level 4 (87026) Diagnoses Pseudotumor cerebri syndrome G93.2 Hypothyroidism E03.9 Fatty liver K76.0 Low vitamin D level R79.89 Morbid obesity with BMI of 40.0-44.9, adult E66.01; Z68.41 Cervical cancer screening Z12.4 Migraine headache G43.909 Rheumatoid arthritis of multiple sites with negative rheumatoid factor M06.09 Rheumatoid arthritis location: multiple sites Rheumatoid factor presence: without rheumatoid factor
== END 2023-08-01 15:53 | disposition home or self-care (01) ==
PROVIDERS: Visit Provider Nurse Practitioner Family
DX: E03.9 Hypothyroidism, unspecified (principal); E66.01 Morbid (severe) obesity due to excess calories; Z68.41 Body mass index [BMI] 40.0-44.9, adult; M06.09 Rheumatoid arthritis without rheumatoid factor, multiple sites; Z23 Encounter for immunization; G93.2 Benign intracranial hypertension; K76.0 Fatty (change of) liver, not elsewhere classified; R79.89 Other specified abnormal findings of blood chemistry; G43.909 Migraine, unspecified, not intractable, without status migrainosus
CPT/HCPCS: 90471; 90686; 99214

== ENCOUNTER 2023-08-08 09:24 | Outpatient (AMB) | payer OTHER, SELFPAY ==
--- NOTE | 2023-08-08 09:28 | MHC.OFFVIS ---
Intake Vital Signs 08/08/23 09:30 Height 5 ft 3 in Weight 243 lb 13.3 oz BMI 43.2 BP 118/82 Blood Pressure Location Rt brachial Position Sitting Pulse 99 Pulse Source Pulse Oximeter Temp 97.3 F Temp Source Skin Pulse Oximetry (%) 98 Intake Visit Reasons: RA Intake Note: Pt presents today for her 2nd visit to discuss lab and x-ray results. C/o pain right arm started approx 2 weeks ago, pain starts at wrist radiates up. 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 Accompanied by: Child Allergies Sulfa (Sulfonamide Antibiotics) Allergy (Unknown, Verified 08/08/23 09:36) anaphylaxis Medication List - Last Reconciled 08/08/23 by Kathleen Reed MD acetazolamide ER 500 mg PO BID blood pressure test kit-large ([facility] Blood Pressure Monitor kit) As directed cholecalciferol (vitamin D3) 50 mcg PO DAILY diclofenac sodium 1% 1 ea topical QID erenumab-aooe (Aimovig Autoinjector) mg subcut levothyroxine 200 mcg PO DAILY topiramate 25 mg PO BID HPI HPI Comments History of Present Illness Details Patient returns for follow-up after completion of her diagnostic workup. Continues to feel about the same overall. She states that she has had a dental infection since of last year. States that she is planning to get her tooth extracted soon. States that she has been having pain in her right forearm with picking up objects. She denies history of frequent infections Initial history: This is a 28-year-old female who was referred for evaluation of rheumatoid arthritis. Patient stated that at age 10 she was having right hand pain and swelling as well as change in color to read and blue. She was evaluated at [facility] and received treatments for about 2 years. Stated that her disease has been in remission for many years. Over the last 2-3 years patient has been having recurrent pain in her hands, mostly the right hand, as well as both feet. She would have a couple of episodes a month when she would wake up with pain and stiffness of her right hand, it lasts about 2 days, then self resolves. She continues to have chronic pain in her right 3rd and 4th fingers in between the attacks. Since 2019 she has been having in red skin rash on her cheeks. The rash is not painful or itchy but feels tight. Rashes not particularly worse in the sun. She denies any history of DVT/PE. Denies any mouth ulcers or blood or froth in urine. States that since she was a child her fingers which change color to white, blue and purple in the cold. At home this would happen in the colder winter months when she reaches into the freezer and she would have to rub her hands together to warm them up, sometimes she would put them under warm water. She never had to go to the emergency room for this. Denies ever having any digital ulcers. [facility] Medical History POTS (postural orthostatic tachycardia syndrome) Dental abscess Otitis media Morbid obesity Ear pain History of recurrent ear infection Sinusitis Hypothyroidism Rheumatoid arthritis Surgical History History of surgery History of tumor History of removal of cyst History of cholecystectomy Family History Father No problems noted. Mother Rheumatoid arthritis Sarcoidosis COPD (chronic obstructive pulmonary disease) Thyroid nodule Family/Other Family history of lupus erythematosus Social History Household Members: Spouse and Children Housing: Apartment Alcohol intake: current Alcohol intake frequency: holidays/special occasions only Patient Tobacco Use Status: Never used Tobacco e-Cigarette/Vaping Use: Never Used Second Hand Smoke Exposure: No service: No Current occupational status: employed Current occupation: N Cognitive needs: No Hearing needs: No Vision needs: No Review of Systems ENT Reports dental pain Musc Reports arthralgias Physical Exam Vital Signs: Last Vital Signs Temp 97.3 F 08/08/23 09:30 Pulse 99 08/08/23 09:30 BP 118/82 08/08/23 09:30 Pulse Ox 98 08/08/23 09:30 BMI result Body Mass Index 43.2 Const General: cooperative, healthy appearing and comfortable Nutritional Appearance: obese Orientation/consciousness: patient oriented x3 Limitations: no limitations HEENT Head: Yes normocephalic and Yes atraumatic Resp Effort & Inspection: normal respiratory effort and able to speak in complete sentences Neuro General: patient oriented x3 Extrem Other: No active synovitis today Tenderness upon palpation of the common extensor origin on the right with positive resisted wrist extension test Assessment & Plan Assessment & Plan (1) Rheumatoid arthritis: Code(s): M06.9 - Rheumatoid arthritis, unspecified Qualifiers: Rheumatoid arthritis location: multiple sites Rheumatoid factor presence: without rheumatoid factor Qualified Code(s): M06.09 - Rheumatoid arthritis without rheumatoid factor, multiple sites Plan: This is a 28-year-old female presents for evaluation of episodic polyarthralgias. 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 Her mother and maternal grandmother have RA, mother has sarcoidosis. Her labs show mildly elevated CRP which can be within normal range with regards to her weight and related to her chronic dental infection. Comprehensive serology otherwise is negative. Her joint pain can be related to her dental infection. Patient stated that she will get the tooth extracted soon. Patient states that she gets symptoms of joint pain 3-4 days a month. She does not qualify for a DMARD Advised patient to take NSAIDs as needed. She does have a low IgA but she denies history suggestive of recurrent mucosal infection. No history suggestive of IgA vasculitis Re-evaluate in 1 year (2) Raynaud phenomenon: Code(s): I73.00 - Raynaud's syndrome without gangrene Qualifiers: Raynaud?s-associated gangrene presence: without gangrene Qualified Code(s): I73.00 - Raynaud's syndrome without gangrene Plan: With normal nailfold capillaroscopy and negative scleroderma antibodies. Likely primary Raynaud's (3) Right tennis elbow: Code(s): M77.11 - Lateral epicondylitis, right elbow Plan: Start doing home exercises with flex bar Plan I spent 26 minutes reviewing patient's chart, evaluating patient, counseling patient and documenting in the chart Coding Level of Care Code Est Pt Level 4 (73490) Diagnoses Rheumatoid arthritis of multiple sites with negative rheumatoid factor M06.09 Rheumatoid arthritis location: multiple sites Rheumatoid factor presence: without rheumatoid factor Raynaud's phenomenon without gangrene I73.00 Raynaud?s-associated gangrene presence: without gangrene Right tennis elbow M77.11
[2023-08-08 09:30] VITALS: BP 118/82; PULSE 99; TEMP 36.3; O2SAT 98; BMI 43.2
== END 2023-08-08 09:52 | disposition home or self-care (01) ==
PROVIDERS: PCP Internal Medicine; Visit Provider Student in an Organized Health Care Education/Training Program
DX: M06.09 Rheumatoid arthritis without rheumatoid factor, multiple sites (principal); I73.00 Raynaud's syndrome without gangrene; M77.11 Lateral epicondylitis, right elbow
CPT/HCPCS: 99214

== ENCOUNTER → 2023-08-08 09:24 | Outpatient (BNVA) | payer OTHER, SELFPAY | PROVIDERS: PCP Internal Medicine; Visit Provider Student in an Organized Health Care Education/Training Program ==

== ENCOUNTER 2023-09-30 14:25 | Outpatient (AMB) | payer OTHER, SELFPAY ==
[2023-09-30 14:39] VITALS: BMI 44.2
--- NOTE | 2023-09-30 14:39 | A.OFFVIS_ITS ---
Intake VS Expanded 09/30/23 14:39 09/30/23 14:52 Height 5 ft 3 in 5 ft 3 in Weight 249 lb 9.012 oz 250 lb BMI 44.2 44.3 Intake Visit Reasons: Obesity Allergies Sulfa (Sulfonamide Antibiotics) Allergy (Unknown, Verified 08/08/23 09:36) anaphylaxis HPI Nutrition Presentation Details Pt presents for MNT for obesity. Pt reports weight prior to was 210 lbs (about 5 yrs ago) Goal weight 160-180 lbs ETOH: occ smoking: no food frequency fruits/d daily 1-2 /d yogurt/milk: 0-2/m fish : does not include , likes shellfish vegetables: 1-2 x/wk physical activity : daily life activities CVK-Plqxwjr-Ze.Jeor Equation Height 5 ft 3 in Weight 250 lb Resting Metabolic Rate 1824.37 Calculated Activity Level Sedentary Calories Needed to Maintain Weight 2189.24 Diagnosis0 Nutrition problem #1 food nutri know defi As related to (etiology) #1 diagnosis As evidenced by (sign/symptom) #1 high BMI (44.3 (09/2023)) Most Recent Diabetes Results: Cholesterol 124 mg/dL 01/25/23 HDL Cholesterol 50 mg/dL 01/25/23 Triglycerides 45 mg/dL 01/25/23 Creatinine 0.64 mg/dL (0.5-1.4) 06/25/23 Blood Urea Nitrogen 8 mg/dL (9-16) L 06/25/23 Sodium 138 mmol/L (135-145) 06/25/23 Potassium 3.5 mmol/L (3.3-5.1) 06/25/23 Chloride 113 mmol/L (96-108) H 06/25/23 Carbon Dioxide 18 mmol/L (22-29) L 06/25/23 Calcium 9.3 mg/dL (8.4-10.2) 06/25/23 AST 28 U/L (5-31) 06/25/23 ALT 37 U/L (0-31) H 06/25/23 Total Protein 8.0 g/dL (6.5-8.0) 06/25/23 Albumin 4.2 g/dL (3.5-5.0) 06/25/23 [facility] Medical History POTS (postural orthostatic tachycardia syndrome) Dental abscess Otitis media Morbid obesity Ear pain History of recurrent ear infection Sinusitis Hypothyroidism Rheumatoid arthritis Surgical History History of surgery History of tumor History of removal of cyst History of cholecystectomy Family History Father No problems noted. Mother Rheumatoid arthritis Sarcoidosis COPD (chronic obstructive pulmonary disease) Thyroid nodule Family/Other Family history of lupus erythematosus Social History Household Members: Spouse and Children Housing: Apartment Alcohol intake: current Alcohol intake frequency: holidays/special occasions only Patient Tobacco Use Status: Never used Tobacco e-Cigarette/Vaping Use: Never Used Second Hand Smoke Exposure: No service: No Current occupational status: employed Current occupation: N Cognitive needs: No Hearing needs: No Vision needs: No Assessment & Plan Assessment & Plan (1) Morbid obesity with BMI of 40.0-44.9, adult: Code(s): E66.01 - Morbid (severe) obesity due to excess calories; Z68.41 - Body mass index [BMI] 40.0-44.9, adult Plan: wt: 114 kg Est kcal needs as per MSJ: 2300 (40% carb, 30% protein/fat) Est fluid needs as per 30 ml/d: 3400 Est prot per day as per 1 g/kg bw: 114 Recommend fiber intake : 8-10 g per day and gradually increase to 25-28 g per day for women and 35-38 g for men or as tolerated Recommend sodium intake per day : less than 2000 mg Educated patient on: ( R = reviewed V = verbalizes understanding N/R = needs review N/A = not applicable * Food sources of carbohydrate, adequate serving sizes and its role in various health conditions: R * Differences between complex carbohydrates a simple carbohydrates, role of fiber in diet: R * Differences between types of fats and role in diet (mono on saturated fat fatty acids, saturated fatty acids, trans fats): NR * Food sources of sodium in salt and healthy modifications for heart health in kidney health: NR * Vitamins and minerals: R * Healthy plate method concept: R * Physical activity: Benefits a precaution: R Patient Instructions: Practice mindful eating strategies Work on reducing total carb at meal time to 60-75 g - following healthy plate method, snack 0-20 g carb twice/day Choose water, low sugar beverages with meals/snacks Coding Level of Care Code Nutr Indiv Intake (73139) Diagnoses Morbid obesity with BMI of 40.0-44.9, adult E66.01; Z68.41 Time Spent (min) 30
[2023-10-09 18:14] VITALS: BMI 44.3
== END 2023-09-30 15:13 | disposition home or self-care (01) ==
PROVIDERS: PCP Internal Medicine; Visit Provider Dietitian, Registered
DX: E66.01 Morbid (severe) obesity due to excess calories (principal); Z68.41 Body mass index [BMI] 40.0-44.9, adult

== ENCOUNTER → 2023-09-30 14:25 | Outpatient (BNVA) | payer OTHER, SELFPAY | PROVIDERS: PCP Internal Medicine; Visit Provider Dietitian, Registered | DX: E66.01 Morbid (severe) obesity due to excess calories (principal); Z68.41 Body mass index [BMI] 40.0-44.9, adult; Z71.3 Dietary counseling and surveillance | CPT/HCPCS: 97802 ==

== ENCOUNTER 2024-03-16 12:33 | Outpatient (AMB) | payer OTHER, SELFPAY ==
--- NOTE | 2024-03-16 14:06 | AM.OFFWIN_ITS ---
Intake Vital Signs 03/16/24 14:07 Height 5 ft 3 in Weight 234 lb BMI 41.4 BP 110/72 Blood Pressure Location Lt brachial Position Sitting Pulse 89 Pulse Source Pulse Oximeter Temp 97.9 F Temp Source Temporal Artery Scan Pulse Oximetry (%) 97 Oxygen Delivery Method Room Air Intake Visit Reasons: EP cough body aches congestion chest pain Intake Note: pt is here today for cough body aches congestion chest pain started 2 weeks ago Patient Tobacco Use Status: Never used Tobacco Allergies Sulfa (Sulfonamide Antibiotics) Allergy (Unknown, Verified 03/16/24 14:26) anaphylaxis Do you need a note to return to daycare/school/sports/work: Yes HPI HPI Comments History of Present Illness Details Patient presents to the walk-in today for sick visit Endorses 2.5 weeks of cough, congestion, sinus pressure and sore throat Son and were sick with same, both have since recovered but her symptoms persist She went to the [facility] walk-in last week and was given prednisone. Despite completing 5 day course she does not feel better Denies fever, chest pain, shortness of breath, palpitations, syncope, weakness Taking DayQuil and Mucinex without improvement Negative COVID test at home [facility] Medical History POTS (postural orthostatic tachycardia syndrome) Dental abscess Otitis media Morbid obesity Ear pain History of recurrent ear infection Sinusitis Hypothyroidism Rheumatoid arthritis Surgical History History of surgery History of tumor History of removal of cyst History of cholecystectomy Family History Father No problems noted. Mother Rheumatoid arthritis Sarcoidosis COPD (chronic obstructive pulmonary disease) Thyroid nodule Family/Other Family history of lupus erythematosus Social History Household Members: Spouse and Children Housing: Apartment Alcohol intake: current Alcohol intake frequency: holidays/special occasions only Patient Tobacco Use Status: Never used Tobacco e-Cigarette/Vaping Use: Never Used Second Hand Smoke Exposure: No service: No Current occupational status: employed Current occupation: [employer] Cognitive needs: No Hearing needs: No Vision needs: No Review of Systems Const All systems reviewed & are unremarkable except as noted in HPI and below Physical Exam Vital Signs: Last Vital Signs Temp 97.9 F 03/16/24 14:07 Pulse 89 03/16/24 14:07 BP 110/72 03/16/24 14:07 Pulse Ox 97 03/16/24 14:07 Oxygen Delivery Method Room Air 03/16/24 14:07 BMI result Body Mass Index 41.4 General: awake, alert, oriented. Answers questions appropriately. Fully engaged in examination. Skin: warm, dry, intact HEENT: TMs intact bilaterally, without erythema or exudate. Posterior pharynx without erythema or exudate. Sclera without icterus or injection. Cardiac: External chest normal in appearance. Respiratory: + congested cough. LSCTAB. Abdomen: without gross distension. Neurological: Oriented to person, place, time and situation. Thought process intact. Psychiatric: Appropriate mood and affect. Good judgment and insight. Assessment & Plan Assessment & Plan (1) URI (upper respiratory infection): Code(s): J06.9 - Acute upper respiratory infection, unspecified Plan Z-Teddy as directed Benzonatate 100mg po bid as needed Rest, drink plenty of fluids, tylenol or motrin as needed. Recommend taking OTC nasal decongestants, ask pharmacist. Follow up with pcp or in clinic for any new or worsening symptoms. Go to ER for shortness of breath, chest pain, palpitations, weakness, dizziness. Medications: New benzonatate 100 mg PO BID PRN 20 caps 0RF cough azithromycin For 250 mg dose pack: take 500 mg today (day 1), then 250 mg for 4 days (days 2-5) PO 6 tabs 0RF Coding Level of Care Code Est Pt Level 3 (09414) Diagnoses URI (upper respiratory infection) J06.9
[2024-03-16 14:07] VITALS: BP 110/72; PULSE 89; TEMP 36.6; O2SAT 97; BMI 41.4
== END 2024-03-16 15:11 | disposition home or self-care (01) ==
PROVIDERS: PCP Internal Medicine; Visit Provider Registered Nurse Emergency
DX: J06.9 Acute upper respiratory infection, unspecified (principal)
CPT/HCPCS: 99213

== ENCOUNTER 2024-07-10 11:03 | Outpatient (AMB) | payer OTHER, SELFPAY ==
[2024-07-10 11:05] VITALS: BP 112/72; PULSE 92; O2SAT 98; BMI 42.5
--- NOTE | 2024-07-10 11:05 | A.OFFPC_ITS ---
Vital Signs 07/10/24 11:05 Height 5 ft 3 in Weight 240 lb BMI 42.5 BP 112/72 Blood Pressure Location Lt brachial Position Sitting Pulse 92 Pulse Source Pulse Oximeter Pulse Oximetry (%) 98 Oxygen Delivery Method Room Air Intake Visit Reasons: Leg Injury Intake Note: Pt reports leg feeling better but has a new complaint. The area in front of her ears feel tender and painful. 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 Accompanied by: Self / Same As Patient Allergies Sulfa (Sulfonamide Antibiotics) Allergy (Unknown, Verified 07/10/24 11:08) anaphylaxis Medication List - Last Reconciled 07/10/24 by Joseph Beckman MD acetazolamide ER 500 mg PO BID amoxicillin-pot clavulanate 500-125 mg (Augmentin) 1 tab PO BID benzonatate 100 mg PO BID PRN blood pressure test kit-large (Advocate Blood Pressure Monitor kit) As directed cholecalciferol (vitamin D3) 50 mcg PO DAILY diclofenac sodium 1% 1 ea topical QID erenumab-aooe (Aimovig Autoinjector) mg subcut levothyroxine 200 mcg PO DAILY topiramate 25 mg PO BID Tobacco use date assessed: 07/10/24 Dental Screening Dental Screen Date: 07/10/24 Did you have a dental visit in the last 12 months?: Yes Did you have a dental problem in the last 6 months where you did not have access to dental care?: No Was dental information given to patient?: Patient has dentist HPI Leg Injury HPI Details bilat ear aches for a few days PFSH Medical History POTS (postural orthostatic tachycardia syndrome) Dental abscess Otitis media Morbid obesity Ear pain History of recurrent ear infection Sinusitis Hypothyroidism Rheumatoid arthritis Surgical History History of surgery History of tumor History of removal of cyst History of cholecystectomy Family History Father No problems noted. Mother Rheumatoid arthritis Sarcoidosis COPD (chronic obstructive pulmonary disease) Thyroid nodule Family/Other Family history of lupus erythematosus Social History Household Members: Spouse and Children Housing: Apartment Alcohol intake: current Alcohol intake frequency: holidays/special occasions only Patient Tobacco Use Status: Never used Tobacco Tobacco use type: Cigarette e-Cigarette/Vaping Use: Never Used Second Hand Smoke Exposure: No service: No Current occupational status: employed Current occupation: N Cognitive needs: No Hearing needs: No Vision needs: No Questionnaire PHQ-9 Over the last 2 weeks, how often have you been bothered by any of the following problems? 1. Little interest or pleasure in doing things: not at all 2. Feeling down, depressed, or hopeless: not at all 3. Trouble falling or staying asleep, or sleeping too much: not at all 4. Feeling tired or having little energy: not at all 5. Poor appetite or overeating: not at all 6. Feeling bad about yourself - or that you are a failure or have let yourself or your family down: not at all 7. Trouble concentrating on things, such as reading the newspaper or watching television: not at all 8. Moving or speaking so slowly that other people could have noticed. Or the opposite - being so fidgety or restless that you have been moving around a lot more than usual: not at all 9. Thoughts that you would be better off or of hurting yourself in some way: not at all Total score: 0 Depression Screening Interpretation: Negative Depression Screening Done: Yes 35080 - PHQ-9 Billing: Yes Source: Developed by Drs. Bill Ayala, Grace Graves, Rod Michael and colleagues, with an educational trina from [employer]. Thrive Questionnaire Date Thrive assessed: 07/10/24 I am a: Patient What is your living situation today?: I have a steady place to live Within the past 12 months, did the food you bought not last and you didn't have the money to get more?: Never true Within the past 12 months, did you worry whether your food would run out before you got money to buy more?: Never true Are you currently unemployed and looking for a job?: No THRIVE Score: 0 AUDIT C Alcohol Use Questionnaire (AUDIT-C) 1. How often do you have a drink containing alcohol?: Monthly or less (social) 2. How many drinks containing alcohol do you have on a typical day when you are drinking?: 1 or 2 (0) 3. How often do you have six or more drinks on one occasion?: Never Total Score: 1 Score Reviewed/Action Taken: No NILESH-7 AMB Questionnaire NILESH-7 Date NILESH - 7 assessed: 07/10/24 Feeling nervous, anxious, or on edge: 0 = Not at all Not being able to stop or control worryin = Not at all Worrying too much about different things: 0 = Not at all Trouble relaxin = Not at all Being so restless that it is hard to sit still: 0 = Not at all Becoming easily annoyed or irritable: 0 = Not at all Feeling afraid as if something awful might happen: 0 = Not at all Total NILESH-7 score (0-4 normal; 5-9 mild; 10-14 moderate; 15-21 severe): 0 Source: Developed by Drs. Bill Ayala, Grace Graves, Rod Michael and colleagues, with an educational trina from [employer]. NILESH-7 Assessment Billing NILESH-7 Assessment Tool: NILESH-7 Assessment 40154 Review of Systems Const Denies chills and Denies weight loss Card Denies chest pain, Denies syncope, Denies irregular heart rhythm and Denies dyspnea Resp Denies chest congestion, Denies cough and Denies dyspnea GI Denies abdominal pain, Denies change in stool character, Denies nausea and Denies vomiting Musc Denies deformity and Denies joint swelling Neuro Denies syncope Physical exam (Primary Care) Vital Signs: Last Vital Signs Pulse 92 07/10/24 11:05 BP 112/72 07/10/24 11:05 Pulse Ox 98 07/10/24 11:05 Oxygen Delivery Method Room Air 07/10/24 11:05 BMI result Body Mass Index 42.5 Tobacco/Smoking Status: Tobacco use Status Tobacco use date assessed 07/10/24 07/10/24 11:12 Patient Tobacco Use Status Never used Tobacco 07/10/24 11:12 Tobacco use type Cigarette 07/10/24 11:12 e-Cigarette/Vaping Use Never Used 07/10/24 11:12 PHQ-9: PHQ-9 Score PHQ-9: Total score 0 07/10/24 11:12 Depression Screening Interpretation: Negative Thrive Assessment: Date of Thrive Assessment Date Thrive assessed 07/10/24 07/10/24 11:12 Const General: cooperative, comfortable, no acute distress and alert HENMT Other: bilateral OM Neck Neck: Yes no lymphadenopathy Thyroid: Thyroid normal Resp Effort & Inspection: normal respiratory effort Auscultation: clear to auscultation bilaterally Percussion: percussion normal Cardio Jugular venous distension: no JVD Palpation: normal PMI Rate: regular rate Rhythm: regular rhythm Heart sounds: S1 normal heart sound present and S2 normal heart sound present GI Inspection: Yes normal to inspection Palpation (GI): No hepatosplenomegaly present Skin General skin exam: no rashes or lesions noted Extrem General: Yes no clubbing, cyanosis or edema Assessment and Plan Assessment & Plan (1) Otitis media: Code(s): H66.90 - Otitis media, unspecified, unspecified ear Plan: rx sent Medications: New amoxicillin-pot clavulanate 500-125 mg (Augmentin) 1 tab PO BID 10 tabs 0RF Coding Level of Care Code Est Pt Level 3 (83646) Diagnoses Otitis media H66.90 Additional Codes NILESH-7 Assessment Billing - NILESH-7 Assessment Tool: NILESH-7 Assessment [id number] ([id number])
== END 2024-07-10 11:19 | disposition home or self-care (01) ==
PROVIDERS: PCP Internal Medicine; Visit Provider Internal Medicine
DX: H66.93 Otitis media, unspecified, bilateral (principal)

== ENCOUNTER → 2024-07-10 11:03 | Outpatient (BNVA) | payer OTHER, SELFPAY | PROVIDERS: PCP Internal Medicine; Visit Provider Internal Medicine | DX: H66.93 Otitis media, unspecified, bilateral (principal) | CPT/HCPCS: 96127 ==

== ENCOUNTER 2024-08-06 13:41 | Outpatient (AMB) | payer OTHER, SELFPAY ==
[2024-08-06 13:45] VITALS: BP 116/62; PULSE 84; O2SAT 99; BMI 43.8
--- NOTE | 2024-08-06 13:45 | A.OFFVIS_ITS ---
Vital Signs 08/06/24 13:45 Height 5 ft 3 in Weight 247 lb 2.211 oz BMI 43.8 BP 116/62 Blood Pressure Location Lt brachial Position Sitting Pulse 84 Pulse Source Pulse Oximeter Pulse Oximetry (%) 99 Oxygen Delivery Method Room Air Intake Visit Reasons: MARY/CM Intake Note: Patient last seen by Doctor Kathleen Reed on 08/08/23. Presents today for MARY follow up. Patient states in the last two weeks her fingers have been swelling up. Allergies Sulfa (Sulfonamide Antibiotics) Allergy (Unknown, Verified 08/06/24 13:49) anaphylaxis Medication List - Last Reconciled 08/06/24 by Kathleen Reed MD acetazolamide ER 500 mg PO BID amoxicillin-pot clavulanate 500-125 mg (Augmentin) 1 tab PO BID benzonatate 100 mg PO BID PRN blood pressure test kit-large (Advocate Blood Pressure Monitor kit) As directed cholecalciferol (vitamin D3) 50 mcg PO DAILY diclofenac sodium 1% 1 ea topical QID erenumab-aooe (Aimovig Autoinjector) mg subcut levothyroxine 200 mcg PO DAILY metformin 500 mg PO BID topiramate 25 mg PO BID HPI Comments Details: 29-year-old female with history of MARY as a child who presents for 1 year follow-up. She states that she has been doing reasonably well overall in termittent pain in her knuckles, no significant swelling or stiffness. She does not take anything for pain like Tylenol or NSAIDs. Denies any fevers, skin rashes or unintentional weight loss. She states that she was recently diagnosed with PCOS. Initial history: This is a 28-year-old female who was referred for evaluation of rheumatoid arthritis. Patient stated that at age 10 she was having right hand pain and swelling as well as change in color to read and blue. She was evaluated at [facility] and received treatments for about 2 years. Stated that her disease has been in remission for many years. Over the last 2-3 years patient has been having recurrent pain in her hands, mostly the right hand, as well as both feet. She would have a couple of episodes a month when she would wake up with pain and stiffness of her right hand, it lasts about 2 days, then self resolves. She continues to have chronic pain in her right 3rd and 4th fingers in between the attacks. Since 2019 she has been having in red skin rash on her cheeks. The rash is not painful or itchy but feels tight. Rashes not particularly worse in the sun. She denies any history of DVT/PE. Denies any mouth ulcers or blood or froth in urine. States that since she was a child her fingers which change color to white, blue and purple in the cold. At home this would happen in the colder winter months when she reaches into the freezer and she would have to rub her hands together to warm them up, sometimes she would put them under warm water. She never had to go to the emergency room for this. Denies ever having any digital ulcers. [facility] Medical History POTS (postural orthostatic tachycardia syndrome) Dental abscess Otitis media Morbid obesity Ear pain History of recurrent ear infection Sinusitis Hypothyroidism Rheumatoid arthritis Surgical History History of surgery History of tumor History of removal of cyst History of cholecystectomy Family History Father No problems noted. Mother Rheumatoid arthritis Sarcoidosis COPD (chronic obstructive pulmonary disease) Thyroid nodule Family/Other Family history of lupus erythematosus Social History Household Members: Spouse and Children Housing: Apartment Alcohol intake: current Alcohol intake frequency: holidays/special occasions only Patient Tobacco Use Status: Never used Tobacco Tobacco use type: Cigarette e-Cigarette/Vaping Use: Never Used Second Hand Smoke Exposure: No service: No Current occupational status: employed Current occupation: N Cognitive needs: No Hearing needs: No Vision needs: No Review of Systems [facility] [place] arthralgias and Denies stiffness Physical Exam Vital Signs: Last Vital Signs Pulse 84 08/06/24 13:45 BP 116/62 08/06/24 13:45 Pulse Ox 99 08/06/24 13:45 Oxygen Delivery Method Room Air 08/06/24 13:45 BMI result Body Mass Index 43.8 Const General: cooperative, healthy appearing and comfortable Nutritional Appearance: obese Orientation/consciousness: patient oriented x3 Limitations: no limitations HEENT Head: Yes normocephalic and Yes atraumatic Resp Effort & Inspection: normal respiratory effort and able to speak in complete sentences Neuro General: patient oriented x3 Extrem Other: Right 3rd MCP tenderness without swelling Left 4th MCP tenderness without swelling 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 No wrist pain with full flexion-extension bilaterally Normal nailfold capillaroscopy No elbow pain with flexion-extension bilaterally Normal range of motion of shoulders No knee pain with flexion-extension bilaterally No ankle swelling or tenderness bilaterally Assessment & Plan Assessment & Plan (1) Rheumatoid arthritis: Code(s): M06.9 - Rheumatoid arthritis, unspecified Category: Medical Qualifiers: Rheumatoid arthritis location: multiple sites Rheumatoid factor presen ce: without rheumatoid factor Qualified Code(s): M06.09 - Rheumatoid arthritis without rheumatoid factor, multiple sites Plan: This is a 29-year-old female presents for evaluation of episodic polyarthralgias. 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 Her mother and maternal grandmother have RA, mother has sarcoidosis. Comprehensive serology otherwise is negative. At this time, I do not see any evidence of recurrence of inflammatory arthritis. Advised patient to return as needed Plan I spent 16 minutes reviewing patient's chart, evaluating patient, counseling patient and documenting in the chart Coding Level of Care Code Est Pt Level 3 (92231) Diagnoses Rheumatoid arthritis of multiple sites with negative rheumatoid factor M06.09 Rheumatoid arthritis location: multiple sites Rheumatoid factor presence: without rheumatoid factor
== END 2024-08-06 14:07 | disposition home or self-care (01) ==
PROVIDERS: PCP Internal Medicine; Visit Provider Student in an Organized Health Care Education/Training Program
DX: M06.09 Rheumatoid arthritis without rheumatoid factor, multiple sites (principal)
CPT/HCPCS: 99213

== ENCOUNTER → 2024-08-06 13:41 | Outpatient (BNVA) | payer OTHER, SELFPAY | PROVIDERS: PCP Internal Medicine; Visit Provider Student in an Organized Health Care Education/Training Program ==

== ENCOUNTER 2024-08-10 10:06 | Outpatient (REF) | payer OTHER, SELFPAY ==
[2024-08-10 11:20] LABS: MANUAL DIFF FLAG NO
[2024-08-10 11:46] LABS: Basophils Percent Auto 0.2 % (0-2); Eosinophils Absolute Auto 0.1 X10*3/uL (0.0-0.4); Eosinophils Percent Auto 0.7 % (0-4); Hematocrit 43.2 % (37.0-47.0); Imm Gran Abs Auto 0.04 X10*3/uL (0.00-0.03); Imm Gran Pct Auto 0.5 % (0.0-0.4); Lymphocytes Absolute Auto 1.5 X10*3/uL (1.2-4.9); Lymphocytes Percent Auto 18.8 % (20-40); Mean Corpuscular HGB Conc 34.7 g/dl (31.0-35.0); Mean Corpuscular Hemoglobin 29.4 pg (27.0-33.0); Mean Corpuscular Volume 84.5 fL (80.0-98.0); Mean Platelet Volume 11.3 fL (9.4-12.3); Monocytes Absolute Auto 0.6 X10*3/uL (0.1-1.2); Monocytes Percent Auto 7.4 % (2-11); Neutrophils Absolute Auto 5.9 x10*3/uL (2.0-8.3); Neutrophils Percent Auto 72.4 % (45-73); Platelet Count 242 X10*3/uL (160-400); Red Blood Count 5.11 X10*6/uL (4.20-5.50); White Blood Count 8.2 X10*3/uL (4.8-10.8)
== END 2024-08-10 10:07 | disposition home or self-care (01) ==
LOC: HO.LAB 10:06
PROVIDERS: PCP Internal Medicine; Visit Provider Internal Medicine
DX: Z00.00 Encounter for general adult medical examination without abnormal findings (principal); Z23 Encounter for immunization; E03.9 Hypothyroidism, unspecified; E11.9 Type 2 diabetes mellitus without complications
CPT/HCPCS: 36415; 85025; 90471; 90656

== ENCOUNTER 2024-08-10 10:06 | Outpatient (AMB) | payer OTHER, SELFPAY ==
[2024-08-10 10:12] VITALS: BP 126/74; PULSE 76; O2SAT 99; BMI 42.5
--- NOTE | 2024-08-10 10:12 | A.OFFPC_ITS ---
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 by: Self / Same As Patient Allergies Sulfa (Sulfonamide Antibiotics) Allergy (Unknown, Verified 08/10/24 10:12) anaphylaxis Medication List - Last Reconciled 08/11/24 by Joseph Beckman MD acetazolamide ER 500 mg PO BID blood pressure test kit-large (Advocate Blood Pressure Monitor kit) As directed cholecalciferol (vitamin D3) 50 mcg PO DAILY diclofenac sodium 1% 1 ea topical QID erenumab-aooe (Aimovig Autoinjector) mg subcut levothyroxine 200 mcg PO DAILY metformin 500 mg PO BID topiramate 25 mg PO BID Tobacco use date assessed: 07/10/24 Dental Screening Dental Screen Date: 07/10/24 HPI Annual Exam HPI Details diabetes and hypothyroidism on rx; compliant; doing well [facility] Medical History POTS (postural orthostatic tachycardia syndrome) Dental abscess Otitis media Morbid obesity Ear pain History of recurrent ear infection Sinusitis Hypothyroidism Rheumatoid arthritis Surgical History History of surgery History of tumor History of removal of cyst History of cholecystectomy Family History Father No problems noted. Mother Rheumatoid arthritis Sarcoidosis COPD (chronic obstructive pulmonary disease) Thyroid nodule Family/Other Family history of lupus erythematosus Social History Household Members: Spouse and Children Housing: Apartment Alcohol intake: current Alcohol intake frequency: holidays/special occasions only Patient Tobacco Use Status: Never used Tobacco Tobacco use type: Cigarette e-Cigarette/Vaping Use: Never Used Second Hand Smoke Exposure: No service: No Current occupational status: employed Current occupation: N Cognitive needs: No Hearing needs: No Vision needs: No Questionnaire PHQ-9 Over the last 2 weeks, how often have you been bothered by any of the following problems? 1. Little interest or pleasure in doing things: not at all 2. Feeling down, depressed, or hopeless: not at all 3. Trouble falling or staying asleep, or sleeping too much: not at all 4. Feeling tired or having little energy: not at all 5. Poor appetite or overeating: not at all 6. Feeling bad about yourself - or that you are a failure or have let yourself or your family down: not at all 7. Trouble concentrating on things, such as reading the newspaper or watching television: not at all 8. Moving or speaking so slowly that other people could have noticed. Or the opposite - being so fidgety or restless that you have been moving around a lot more than usual: not at all 9. Thoughts that you would be better off or of hurting yourself in some way: not at all Total score: 0 Source: Developed by Drs. Bill Ayala, Grace Graves, Rod Michael and colleagues, with an educational trina from [email or web address]. Thrive Questionnaire Date Thrive assessed: 07/10/24 I am a: Patient What is your living situation today?: I have a steady place to live Within the past 12 months, did the food you bought not last and you didn't have the money to get more?: Never true Within the past 12 months, did you worry whether your food would run out before you got money to buy more?: Never true Do you have trouble paying for medicines?: No Do you have trouble getting transportation to medical appointments?: No Do you have trouble paying your heating and electricity bill?: No Do you have trouble taking care of your child, family member or friend?: No Do you have trouble with day-to-day activities such as bathing, preparing meals, shopping, managing finances, etc.?: No Are you interested in more education?: No Please select the resources that you would like help with: None Currently or been in a relationship where the following occur: No concerns reported THRIVE Score: 0 AUDIT C Alcohol Use Questionnaire (AUDIT-C) 1. How often do you have a drink containing alcohol?: Monthly or less 2. How many drinks containing alcohol do you have on a typical day when you are drinking?: 1 or 2 3. How often do you have six or more drinks on one occasion?: Never Total Score: 1 NILESH-7 AMB Questionnaire NILESH-7 Date NILESH - 7 assessed: 07/10/24 Feeling nervous, anxious, or on edge: 0 = Not at all Not being able to stop or control worryin = Not at all Worrying too much about different things: 0 = Not at all Trouble relaxin = Not at all Being so restless that it is hard to sit still: 0 = Not at all Becoming easily annoyed or irritable: 0 = Not at all Feeling afraid as if something awful might happen: 0 = Not at all Total NILESH-7 score (0-4 normal; 5-9 mild; 10-14 moderate; 15-21 severe): 0 Source: Developed by Drs. Bill Ayala, Grace Graves, Rod Michael and colleagues, with an educational trina from [email or web address]. Review of Systems Const Denies chills, Denies fatigue, Denies headache(s) and Denies weight loss Eyes Denies change in vision, Denies diplopia and Denies eye pain ENT Denies vertigo, Denies dizziness, Denies headache(s) and Denies nasal discharge Card Denies chest pain, Denies rapid heart rate and Denies dyspnea on exertion Resp Denies chest congestion, Denies cough, Denies pain with cough and Denies dyspnea on exertion GI Denies abdominal pain, Denies hematochezia and Denies change in bowel habits Musc Denies myalgias, Denies arthralgias and Denies joint swelling Skin/Breast Denies lesions and Denies unusual bruising Neuro Denies vertigo, Denies dizziness, Denies headache(s) and Denies focal weakness Endo Denies fatigue Physical exam (Primary Care) Vital Signs: Last Vital Signs Pulse 76 08/10/24 10:12 BP 126/74 08/10/24 10:12 Pulse Ox 99 08/10/24 10:12 Oxygen Delivery Method Room Air 08/10/24 10:12 BMI result Body Mass Index 42.5 Tobacco/Smoking Status: Tobacco use Status Tobacco use date assessed 07/10/24 08/10/24 10:16 Patient Tobacco Use Status Never used Tobacco 08/10/24 10:16 Tobacco use type Cigarette 08/10/24 10:16 e-Cigarette/Vaping Use Never Used 08/10/24 10:16 PHQ-9: PHQ-9 Score PHQ-9: Total score 0 08/10/24 10:41 Thrive Assessment: Date of Thrive Assessment Date Thrive assessed 07/10/24 08/10/24 10:16 Currently or been in a relationship where the following occur: No concerns reported Const General: cooperative, healthy appearing and no acute distress Orientation/consciousness: oriented to person, oriented to place and oriented to time HENNY Head: Yes normal to inspection, Yes normocephalic and Yes atraumatic Mouth: Normal oral and palatal mucosa present and tongue normal Throat: Yes posterior oropharynx normal and Yes uvula midline Eyes General: appearance normal, both eyes and all related structures Neck Neck: Yes normal visual inspection, Yes full ROM and Yes no lymphadenopathy Thyroid: Thyroid normal Carotids: normal carotid upstroke Chest Chest palpation & inspection: normal inspection of the chest Resp Effort & Inspection: normal respiratory effort and able to speak in complete sentences Auscultation: clear to auscultation bilaterally Cardio Jugular venous distension: no JVD Palpation: normal PMI Rate: regular rate Rhythm: regular rhythm Heart sounds: S1 normal heart sound present and S2 normal heart sound present GI Inspection: Yes normal to inspection Palpation (GI): Soft to palpation and No hepatosplenomegaly present Auscultation: normal bowel sounds General: Yes no CVA tenderness Back/Spine/Pelvis Back: no CVA tenderness Skin General skin exam: no rashes or lesions noted Neuro General: oriented to person, oriented to place and oriented to time Extrem General: Yes normal to inspection and Yes full ROM Office Procedures Flu Questionnaire Does the patient have a severe egg allergy?: No Does the patient have severe life threatening allergies?: No Does the patient have a fever or illness today?: No Has the patient ever had Guillain-[place] Syndrome?: No Has the patient ever had any past reaction to a flu shot?: No Immunizations Fluarix Triv [id number] (PF) 45 mcg (15 mcg x 3)/0.5 mL IM syringe Performing Provider: Joseph Beckman MD [facility] Administered by: Tatiana Craven RN on 08/10/24 10:39 Dose Route Admin Location Dispensed Lot Number Expiration Date [facility] [place] 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 0.5 mL IM Left Deltoid 0.5 mL [id number] 04/12/25 [id number] [employer] VIS Given Date VIS Provided VIS Publication Date 08/10/24 Single Vaccine 21 Eligibility Eligibility Date Funding Source Not [facility] Eligible 08/10/24 Private Coding Level of Care Code Est Pt Prev Care 18-39y([id number]) Diagnoses Physical exam Z00.00 Hypothyroidism E03.9 Diabetes mellitus E11.9 Assessment & Plan Assessment & Plan (1) Physical exam: Code(s): Z00.00 - Encounter for general adult medical examination without abnormal findings Category: Medical Plan: stable (2) Hypothyroidism: Code(s): E03.9 - Hypothyroidism, unspecified Category: Medical Plan: stable; do labs (3) Diabetes mellitus: Code(s): E11.9 - Type 2 diabetes mellitus without complications Category: Medical Plan: stable; do labs Orders: Orders Thyroid Stimulating Hormone 08/10/24 Z13.29 - Encounter for screening for other suspected endocrine disorder Hemoglobin A1c Today R73.9 - Hyperglycemia, unspecified Lipid Panel 08/10/24 Z13.220 - Encounter for screening for lipoid disorders Complete Blood Count Auto Diff 08/10/24 Z13.0 - Encounter for screening for diseases of the blood and blood-forming organs and certain disorders involving the immune mechanism Comprehensive Caro. Panel Fast 08/10/24 Z13.9 - Encounter for screening, unspecified Influenza [id number] Immunization 08/10/24 Z23 - Encounter for immunization
== END 2024-08-10 10:42 | disposition home or self-care (01) ==
PROVIDERS: PCP Internal Medicine; Visit Provider Internal Medicine
DX: Z00.00 Encounter for general adult medical examination without abnormal findings (principal); E03.9 Hypothyroidism, unspecified; E11.9 Type 2 diabetes mellitus without complications

== ENCOUNTER 2024-09-02 11:20 | Outpatient (AMB) | payer OTHER, SELFPAY ==
--- NOTE | 2024-09-02 11:49 | AM.OFFWIN_ITS ---
Intake Vital Signs 09/02/24 11:52 Weight 244 lb BP 130/90 H Blood Pressure Location Lt brachial Position Sitting Pulse 77 Pulse Source Pulse Oximeter Pulse Oximetry (%) 98 Oxygen Delivery Method Room Air Intake Visit Reasons: EP mouth pain Intake Note: Patient here for right sided mouth pain that started yesterday. Patient Tobacco Use Status: Never used Tobacco Allergies Sulfa (Sulfonamide Antibiotics) Allergy (Unknown, Verified 09/02/24 11:52) anaphylaxis Do you need a note to return to daycare/school/sports/work: No HPI EP mouth pain HPI Details This note is constructed using voice recognition software. While every effort has been made to ensure accuracy, primary care nurse errors may have been included. The patient is a 29 year old female who presents to the clinic today with mouth pain since yesterday. She reports that approximately 1 month ago she was advised by her dentist that she has an infection in her tooth in the upper right mouth. She started with pain yesterday, and then attempted to obtain an appointment to have this extracted as this was the original plan, however she is unable to obtain a new appointment for an additional month. She denies fever, chills, jaw pain, dysphagia. She is taking Tylenol and Motrin for the pain which is helping somewhat. She reports the pain to be the upper inner mouth near her tooth. [facility] Medical History POTS (postural orthostatic tachycardia syndrome) Dental abscess Otitis media Morbid obesity Ear pain History of recurrent ear infection Sinusitis Hypothyroidism Rheumatoid arthritis Surgical History History of surgery History of tumor History of removal of cyst History of cholecystectomy Family History Father No problems noted. Mother Rheumatoid arthritis Sarcoidosis COPD (chronic obstructive pulmonary disease) Thyroid nodule Family/Other Family history of lupus erythematosus Social History Household Members: Spouse and Children Housing: Apartment Alcohol intake: current Alcohol intake frequency: holidays/special occasions only Patient Tobacco Use Status: Never used Tobacco Tobacco use type: Cigarette e-Cigarette/Vaping Use: Never Used Second Hand Smoke Exposure: No service: No Current occupational status: employed Current occupation: [employer] Cognitive needs: No Hearing needs: No Vision needs: No Review of Systems Const All systems reviewed & are unremarkable except as noted in HPI and below Physical Exam Vital Signs: Last Vital Signs Pulse 77 09/02/24 11:52 BP 130/90 H 09/02/24 11:52 Pulse Ox 98 09/02/24 11:52 Oxygen Delivery Method Room Air 09/02/24 11:52 Const General: cooperative, healthy appearing, comfortable, no acute distress and well developed Orientation/consciousness: patient oriented x3 Limitations: no limitations HEENT Teeth and gingiva: caries and other (erythema to right upper inner gum near tooth 3, TTP. ) Neck Neck: Yes normal visual inspection and Yes full ROM Resp Effort & Inspection: normal respiratory effort and able to speak in complete sentences Skin General skin exam: no rashes or lesions noted Neuro General: patient oriented x3 Assessment & Plan Assessment & Plan (1) Oral infection: Code(s): K12.2 - Cellulitis and abscess of mouth Plan: Supportive measures encouraged and reviewed. Antibiotic sent to requested pharmacy, advised patient to take antibiotics until completed and not to stop if feeling better, unless the patient has side effects. Advised patient to follow up with dentistwith worsening or failure to resolve. Plan See above for full details and plan. Medications: New amoxicillin-pot clavulanate 875-125 mg 1 tab PO BID 10 days 20 tabs 0RF Coding Level of Care Code Est Pt Level 3 (91438) Diagnoses Oral infection K12.2
[2024-09-02 11:52] VITALS: BP 130/90; PULSE 77; O2SAT 98
== END 2024-09-02 12:35 | disposition home or self-care (01) ==
PROVIDERS: PCP Internal Medicine; Visit Provider Registered Nurse
DX: K12.2 Cellulitis and abscess of mouth (principal)

== ENCOUNTER → 2024-09-02 11:20 | Outpatient (BNVA) | payer OTHER, SELFPAY | PROVIDERS: PCP Internal Medicine; Visit Provider Registered Nurse ==

== ENCOUNTER 2025-02-12 13:56 | Outpatient (AMB) | payer OTHER, SELFPAY ==
--- NOTE | 2025-02-12 14:02 | MHC.PC.OV ---
Vital Signs 02/12/25 14:06 Height 5 ft 3 in Weight 240 lb BMI 42.5 BP 110/78 Blood Pressure Location Lt brachial Position Sitting Pulse 111 H Pulse Source Pulse Oximeter Temp 97.3 F Temp Source Temporal Artery Scan Pulse Oximetry (%) 98 Oxygen Delivery Method Room Air Intake Visit Reasons: ARUNA Dr Beckman Professional Benefits Sales Consultant Required: No Accompanied by: Self / Same As Patient Allergies Sulfa (Sulfonamide Antibiotics) Allergy (Unknown, Verified 02/12/25 14:07) anaphylaxis Medication List - Last Reconciled 02/12/25 by Linda Dwyer PA-C acetazolamide ER 500 mg PO BID amoxicillin-pot clavulanate 875-125 mg 1 tab PO BID 10 days blood pressure test kit-large ([facility] Blood Pressure Monitor kit) As directed cholecalciferol (vitamin D3) 50 mcg PO DAILY diclofenac sodium 1% 1 ea topical QID erenumab-aooe (Aimovig Autoinjector) mg subcut levothyroxine 200 mcg PO DAILY metformin 500 mg PO BID topiramate 25 mg PO BID Tobacco use date assessed: 07/10/24 Dental Screening Dental Screen Date: 07/10/[address] Beckman HPI Details 29-year-old female with past medical history of diabetes mellitus, rheumatoid arthritis, hypothyroidism, morbid obesity, pseudotumor cerebri last seen by Dr. Beckman 07/2024 coming in for transfer of care. [place] [facility] [place] 1-2x per year. She also follows with her eye doctor 2x per year both for pseudotumor cerebri. She is not UTD on pap smears. She was interested in trying weight loss injections and her neurologist did also recommend this. [facility] Medical History POTS (postural orthostatic tachycardia syndrome) Dental abscess Otitis media Ear pain History of recurrent ear infection Sinusitis Hypothyroidism Rheumatoid arthritis Surgical History History of surgery History of tumor History of removal of cyst History of cholecystectomy Family History Father No problems noted. Mother Rheumatoid arthritis Sarcoidosis COPD (chronic obstructive pulmonary disease) Thyroid nodule Family/Other Family history of lupus erythematosus Social History Household Members: Spouse and Children Housing: Apartment Alcohol intake: current Alcohol intake frequency: holidays/special occasions only Patient Tobacco Use Status: Never used Tobacco Tobacco use type: Cigarette e-Cigarette/Vaping Use: Never Used Second Hand Smoke Exposure: No service: No Current occupational status: employed Current occupation: [employer] Cognitive needs: No Hearing needs: No Vision needs: No Female Reproductive History Menstrual control method: progestin IUCD Total pregnancies: 2 Full term: 1 Ab spontaneous: 1 History of abnormal pap smear: No Questionnaire PHQ-9 Over the last 2 weeks, how often have you been bothered by any of the following problems? 1. Little interest or pleasure in doing things: not at all 2. Feeling down, depressed, or hopeless: not at all 3. Trouble falling or staying asleep, or sleeping too much: not at all 4. Feeling tired or having little energy: not at all 5. Poor appetite or overeating: not at all 6. Feeling bad about yourself - or that you are a failure or have let yourself or your family down: not at all 7. Trouble concentrating on things, such as reading the newspaper or watching television: not at all 8. Moving or speaking so slowly that other people could have noticed. Or the opposite - being so fidgety or restless that you have been moving around a lot more than usual: not at all 9. Thoughts that you would be better off or of hurting yourself in some way: not at all Total score: 0 Depression Screening Interpretation: Negative Depression Screening Done: Yes 55503 - PHQ-9 Billing: Yes Source: Developed by Drs. Bill Ayala, Grace Graves, Rod Michael and colleagues, with an educational trina from [employer]. Thrive Questionnaire Date Thrive assessed: 02/12/25 I am a: Patient What is your living situation today?: I have a steady place to live Within the past 12 months, did the food you bought not last and you didn't have the money to get more?: Never true Within the past 12 months, did you worry whether your food would run out before you got money to buy more?: Never true Do you have trouble paying for medicines?: No Do you have trouble getting transportation to medical appointments?: No Do you have trouble paying your heating and electricity bill?: No Do you have trouble taking care of your child, family member or friend?: No Do you have trouble with day-to-day activities such as bathing, preparing meals, shopping, managing finances, etc.?: No Are you currently unemployed and looking for a job?: No Are you interested in more education?: No Please select the resources that you would like help with: None Currently or been in a relationship where the following occur: No concerns reported THRIVE Score: 0 AUDIT C Alcohol Use Questionnaire (AUDIT-C) 1. How often do you have a drink containing alcohol?: Monthly or less 2. How many drinks containing alcohol do you have on a typical day when you are drinking?: 1 or 2 3. How often do you have six or more drinks on one occasion?: Never Total Score: 1 NILESH-7 AMB Questionnaire NILESH-7 Date NILESH - 7 assessed: 02/12/25 Feeling nervous, anxious, or on edge: 0 = Not at all Not being able to stop or control worryin = Not at all Worrying too much about different things: 0 = Not at all Trouble relaxin = Not at all Being so restless that it is hard to sit still: 0 = Not at all Becoming easily annoyed or irritable: 0 = Not at all Feeling afraid as if something awful might happen: 0 = Not at all Total NILESH-7 score (0-4 normal; 5-9 mild; 10-14 moderate; 15-21 severe): 0 Source: Developed by Drs. Bill Ayala, Grace Graves, Rod Michael and colleagues, with an educational trina from [employer]. NILESH-7 Assessment Billing NILESH-7 Assessment Tool: NILESH-7 Assessment 64741 Review of Systems Const Denies body aches, Denies chills, Denies fever(s), Reports headache(s) and Denies poor appetite Eyes Reports no additional complaints ENT Denies dizziness and Reports headache(s) Card Denies chest pain, Denies syncope, Denies edema, Denies irregular heart rhythm, Denies lightheadedness and Denies dyspnea Resp Denies cough and Denies dyspnea GI Denies abdominal pain, Denies constipation, Denies diarrhea, Denies nausea and Denies vomiting Reports no additional complaints Musc Reports no additional complaints and Denies abnormal gait Skin/Breast Reports system reviewed and no additional complaints, except as documented Neuro Denies abnormal gait, Denies dizziness, Denies syncope and Reports headache(s) Psych Reports no additional complaints Physical exam (Primary Care) Vital Signs: Last Vital Signs Temp 97.3 F 02/12/25 14:06 Pulse 111 H 02/12/25 14:06 BP 110/78 02/12/25 14:06 Pulse Ox 98 02/12/25 14:06 Oxygen Delivery Method Room Air 02/12/25 14:06 BMI result Body Mass Index 42.5 Tobacco/Smoking Status: Tobacco use Status Tobacco use date assessed 07/10/24 02/12/25 14:02 Patient Tobacco Use Status Never used Tobacco 02/12/25 14:02 Tobacco use type Cigarette 02/12/25 14:02 e-Cigarette/Vaping Use Never Used 02/12/25 14:02 PHQ-9: PHQ-9 Score PHQ-9: Total score 0 02/12/25 14:04 Depression Screening Interpretation: Negative Thrive Assessment: Date of Thrive Assessment Date Thrive assessed 02/12/25 02/12/25 14:02 Currently or been in a relationship where the following occur: No concerns reported Const General: cooperative, healthy appearing, comfortable and no acute distress Orientation/consciousness: patient oriented x3 HENMT Head: Yes normocephalic Ears: hearing grossly normal bilaterally General nose exam: Normal external nose present Eyes General: appearance normal, both eyes and all related structures Conjunctivae: conjunctivae normal Neck Neck: Yes full ROM and Yes no lymphadenopathy Resp Effort & Inspection: normal respiratory effort Auscultation: clear to auscultation bilaterally, no crackles, no rales, no rhonchi and no wheezes Cardio Rate: regular rate Rhythm: regular rhythm Skin General skin exam: no rashes or lesions noted Neuro General: patient oriented x3 Gait exam (Neuro): Normal gait present Extrem General: Yes normal to inspection, Yes full ROM and No edema Psych Affect: normal affect Attitude: cooperative Insight: Good insight present (Psych) Judgement: Good judgement present (Psych) Coding Level of Care Code Est Pt Level 3 (71312) Diagnoses Migraine headache G43.909 Morbid obesity with BMI of 40.0-44.9, adult E66.01; Z68.41 Fatty liver K76.0 Low vitamin D level R79.89 Pseudotumor cerebri syndrome G93.2 Hypothyroidism E03.9 PCOS (polycystic ovarian syndrome) E28.2 Additional Codes NILESH-7 Assessment Billing - NILESH-7 Assessment Tool: NILESH-7 Assessment 27446 ([id number]) PHQ-9 - 36571 - PHQ-9 Billing: Yes ([id number]) Assessment & Plan Assessment & Plan (1) Migraine headache: Code(s): G43.909 - Migraine, unspecified, not intractable, without status migrainosus Category: Medical Plan: Patient currently following with Neurology for management of migraine headache she is on Aimovig and acetazolamide. (2) Morbid obesity with BMI of 40.0-44.9, adult: Code(s): E66.01 - Morbid (severe) obesity due to excess calories; Z68.41 - Body mass index [BMI] 40.0-44.9, adult Category: Medical Plan: Healthy diet and regular exercise is encouraged. Patient was counseled today on the risks and benefits of GLP-1 injections as well as the dosing schedule. She has no family history or personal history of thyroid disease and no gallbladder disease. Discussed with the patient the potential GI side effects of this medication. Plan to have repeat blood work after one month of therapy to monitor kidney and liver function before increasing the dose of this medication. Follow up in 2 months for a weight check. Plan to start on Wegovy and follow up in 2 months for weight check and blood work (3) Fatty liver: Code(s): K76.0 - Fatty (change of) liver, not elsewhere classified Category: Medical Plan: Healthy diet and regular exercise is encouraged. continue to monitor labs (4) Low vitamin D level: Code(s): R79.89 - Other specified abnormal findings of blood chemistry Category: Medical Plan: ordered for updated blood work, continue on supplement. (5) Pseudotumor cerebri syndrome: Code(s): G93.2 - Benign intracranial hypertension Category: Medical Plan: Continue to [place] [facility] [place] currently on Aimovig and acetazolamide. She also follows with Ophthalmology twice yearly for field of vision testing. (6) Hypothyroidism: Code(s): E03.9 - Hypothyroidism, unspecified Category: Medical Plan: Ordered for updated blood work, continue on Levothyroxine at this time. No symptoms mentioned. (7) PCOS (polycystic ovarian syndrome): Code(s): E28.2 - Polycystic ovarian syndrome Category: Medical Plan: Patient has a history of PCOS referral was placed to gynecology today. Plan This note was constructed using voice recognition software. While every effort has been made to ensure accuracy and business enterprise officer, still areas may have been included sometimes these areas may affect the content or meeting of the given symptoms. Total time spent caring for the patient today was 30 minutes. This includes time spent before the visit reviewing the chart, time spent during the visit, and time spent after the visit and documentation. Patient was informed and verbally consented to the use of an ambient scribe for clinic note documentation during this visit. Orders: Orders Complete Blood Count Auto Diff Today Z00.00 - Encounter for general adult medical examination without abnormal findings Comprehensive Met. Panel Today Z00.00 - Encounter for general adult medical examination without abnormal findings Vitamin B12 and Folate Today Z00.00 - Encounter for general adult medical examination without abnormal findings TSH reflex Free T4 Today Z00.00 - Encounter for general adult medical examination without abnormal findings Hemoglobin A1c Today E28.2 - Polycystic ovarian syndrome Free T4 (Free Thyroxine) Today Z00.00 - Encounter for general adult medical examination without abnormal findings Vitamin D 25-OH Total Today Z00.00 - Encounter for general adult medical examination without abnormal findings Lipid Panel Today E28.2 - Polycystic ovarian syndrome, Z13.220 - Encounter for screening for lipoid disorders Referrals DIABETES CLINICAL MANAGER Referral E28.2 - Polycystic ovarian syndrome, Z12.4 - Encounter for screening for malignant neoplasm of cervix Medications: New semaglutide (weight loss) (Wegovy) administer weeks 1 through 4 of therapy 0.25 mg (0.5 mL) subcut QWEEK 2 mL 0RF E28.2 - Polycystic ovarian syndrome, E66.01 - Morbid (severe) obesity due to excess calories, Z68.41 - Body mass index [BMI] 40.0-44.9, adult Discontinued amoxicillin-pot clavulanate 875-125 mg Discontinued Reason: Patient no longer taking 1 tab PO BID 10 days 20 tabs 0RF
[2025-02-12 14:06] VITALS: BP 110/78; PULSE 111; TEMP 36.3; O2SAT 98; BMI 42.5
--- OUTSIDE RECORDS SUMMARY | 2025-02-12 14:14 | XMS_ITS | Data Portability ---
Author Organization [facility] [address] Address [address] [place] [address] Assessment No assessment recorded. Plan of Treatment Reminders Order Date Submit Date Provider Last Modified By Organization Details Last Modified Time Details Appointments None recorded. Lab None recorded. Referral None recorded. Procedures None recorded. Surgeries None recorded. Imaging None recorded. Medication Orders amoxicillin 500 mg capsule 2022 023 [facility]/Pharmacy #[id number], [address] [facility] [place], [address], 19:08:36 Patient TargetsNo targets recorded. Patient Instructions Encounter Date Encounter Id Patient Instructions Last Modified By Organization Details Last Modified Time 05/10/2023 [id number] head or face pain: care instructions Not available 05/10/2023 19:08:33 abscessed tooth: care instructions Not available 05/10/2023 19:08:33 Apply a warm compress to the affected area for 15-20 minutes at a time up to 4 times a day. Not available 05/10/2023 18:54:13 Rinse your mouth every 2 hours with salt water. This will help keep the area clean. Gently brush your teeth twice a day with a soft tooth brush. This will help keep the area clean. Eat soft foods as directed. Soft foods may cause less pain. Examples include applesauce, yogurt, and cooked pasta. Ask your healthcare provider how long to follow this instruction. Apply a warm compress to your tooth or gum. Use a cotton ball or gauze soaked in warm water. Remove the compress in 10 minutes or when it becomes cool. Repeat 3 times a day. Start antibiotics. Follow up with dentist as soon as possible. To the ED with any worsening symptoms. Not available 05/10/2023 19:08:32 Reason for Referral None Reported. Problems Name Problem SNOMED Code Status Onset Date Resolution Date Notes Provider Name and Address Organization Details Recorded Time Migraine 55897046 Active 2022 SWETA mann PA - [facility] 18:55:49 Hypothyroidism 05646133 Active 2022 SWETA mann PA - [facility] 18:55:56 Problem Notes None recorded. Procedures Surgical History Date Name Laterality Status Provider Name and Address Organization Details Recorded Time creation of lumbar subcutaneous shunt completed SWETA ARCHULETA PA - [facility] 05/10/2023 18:56:26 cholecystectomy completed SWETA ARCHULETA PA - [facility] 05/10/2023 18:56:36 procedure on hip completed SWETA ARCHULETA PA - [facility] 05/10/2023 18:56:50 Imaging Results None recorded. Procedure Notes None recorded. Medical Equipment None Reported. Allergies Allergen ID Allergen Name Allergen Category Reaction Reaction Severity Criticality Documentation Date Start Date Code Code System Note Provider Name and Address Organization Details Recorded Time 869296 Bactrim medicatio n Not available Not available Not available 05/10/2023 31506 9 RxNorm SWETA KATHE mann PA - [facility] 18:54:56 557125 Substance with sulfonami de structure and antibacte rial mechanism of action (substanc e) medicatio n Not available Not available Not available 05/10/2023 30861 8003 SNOMED SWETA FOXDASHA mann PA - [facility] 18:55:01 Medications Name Sig Start Date Stop Date Status Note LastModified by Organization Details LastModified Time amoxicillin 500 mg capsule Take 1 capsule every 8 hours by oral route with meals for 10 days. 2022 active Not Available Not Available Not Avai lable Diamox 125 mg tablet Take 1 tablet twice a day by oral route. active Not Available Not Available No t Available levothyroxine active Not Available Not Available Not Available rizatriptan active Not Available Not A vailable Not Available Topamax active Not Available Not Avail able Not Available Mirena active Not Available Not Availa ble Not Available Vitals Date Recorded Body height Body mass index (BMI) Body weight Body temperature Respiratory rate Heart rate Oxygen saturation Oxygen saturation in Arterial blood by Pulse oximetry Systolic blood pressure Diastolic blood pressure Provider Name and Address Organization Details Last Updated DateTime 160.02 cm 40.7 kg/m2 165682. 25 g 97.5 [degF] 18 /min 88 /min 88 % 88 % 116 mm[Hg] 80 mm[Hg] SWETA SANCHEZ - [facility] 18:59:28 Social History Question Answer Notes LastModified by Organizat ion Details LastModified Time Tobacco Smoking Status Never Smoker SW[facility] mann PA [facility] 05/10/2023 18:57:04 What Is Your Level Of Alcohol Consumption? None Information not available 05/10/2023 Are You Currently Employed? Yes Information not available 05/10/2023 Have You Had Direct Contact, Or Contact During Intimacy, With Monkeypox Rash, Scabs, Or Body Fluids From A Person With Monkeypox? No Information not available 05/10/2023 Do You Use Any Illicit Or Recreational Drugs? No Information not available 05/10/2023 Have You Recently Traveled Abroad? No Information not available 05/10/2023 Are You Currently In School? No Information not available 05/10/2023 Do You Or Have You Ever Used Any Other Forms Of Tobacco Or Nicotine? No Information not available 05/10/2023 Sex: Unknown Functional Status None recorded. Mental Status None recorded. Family History Relationship Description Onset Age of this Age Resolved Age Notes LastModified by Organization Details LastModified Time Father No current problems or disability Not available 04/14 18:56:13 Mother No current problems or disability Not available 04/14 18:56:13 Medical History No medical history recorded. Gynecological History Statement/Question Response Is there any chance of ? No LMP Unknown Obstetrics History GPAL:G 0 P 0 0 0 0 Past Encounters Encounter ID Performer Location Encounter Start Date Encounter Closed Date Diagnosis/Indication Diagnosis SNOMED-CT Code Diagnosis ICD10 Code Diagnosis Note [id number] [address] [place] [address] 01/14/2021 11:23:19 01/14/2021 12:04:51 [id number] [address] [place] [address] 03/20/2018 18:42:13 03/20/2018 19:48:40 [id number] Mendez Spaulding NP [address] [facility] [address] [place] [address] 05/10/2023 18:31:52 05/10/2023 19:11:55 Dental abscess 068416644 K04.7 Health Concerns Section Related Observation LastModified by Organization Detai ls LastModified Time None Recorded Concern Status LastModified by Organization Details LastModified Time None Recorded Advance Directives Directive None Recorded Payers Encounter Date Sequence Insurance Name Policy Number Policy Church Covered Member ID Church Member ID Guarantor Name 01/14/2021 1 [facility] (MEDICAID HMO) [id number] Marilynn Kumar rtagendavid [id number] Marilynn Booker artagendavid 05/10/2023 1 [employer] - OPEN ACCESS PLUS Marilynn Henry [id number] Marilynn ramirez Notes Date Note Type Note Provider Name and Address Organization Details Recorded Time 05/10/2023 text/html Facial ProblemReported bypatient.Location:fa ce right;mandible right; right lower molar infection Quality:continuous; painful; aching Duration:1 months Severity:worsening; moderate; pain 5/10 Context:recent dental abscess Alleviating factors:antibiotics; non-steroidal anti-inflammatory drugs Aggravating factors:eating Associated Symptoms:no erythema; no earache; no loss of hearing; no discharge from the ears; no tinnitius; no vertigo; no nausea; no vomiting; no dizziness; no disequilibrium; no eye watering; no dry eyes; no nasal congestion; no nasal discharge; no slurred speech; no difficulty speaking; no hearing loss; no facial twitch;pain in the jaw;difficulty chewing;swelling;tend erness;facial pain Prior Tests and Treatments:dental x-ray Mendez Spaulding NP [address] [place], [address], PA - [facility] 05/10/2023 19:09:10 OBGyn Episode No OBEpisode recorded.
--- OUTSIDE RECORDS SUMMARY | 2025-02-12 14:14 | XMS_ITS | Clinical Summary ---
Author Organization [facility] Address [address] [place] [address] Care Team Providers Care Form Maker Name Role Phone Zakia Hoffman MD Primary Care Provider Surgical History Surgery Date Site/Laterality Comments OTHER SURGICAL HISTORY PROCEDURE: HISTORICAL SHUNT REVISION; COMMENT: Spinal shunt ESOPHAGOGASTRODUODENOSCOPY 2013 PROCEDURE: [place] EGD TRANSORAL BIOPSY SINGLE/[facility]IP[facility]; [facility]; normal with normal duodenal biopsies COLONOSCOPY W/ BIOPSIES 2013 PROCEDURE: [place] COLONOSCOPY W/BIOPSY SINGLE/MULTIPLE; [facility], lymphocytic colitis. OTHER SURGICAL HISTORY 2006 PROCEDURE: [place] EXC TUMOR SOFT TISSUE THIGH/KNEE SUBFASC 5 CM/>; COMMENT: Left OTHER SURGICAL HISTORY 2010 PROCEDURE: [place] EXC TUMOR SOFT TISSUE THIGH/KNEE SUBFASC 5 CM/>; COMMENT: Right CHOLECYSTECTOMY 2017 PROCEDURE: LAPAROSCOPY, CHOLECYSTECTOMY Medical History Medical History Date Comments Benign intracranial hypertension 08/06/2007 DX:Benign intracranial hypertension; COMMENT: LP shunt because of visual loss Lymphocytic colitis 09/02/2014 DX:Lymphocyt ic colitis; COMMENT: EGD, duodenal biopsies, colonoscopy, random colonic biopsies August,, Dr. Hayden Tyson, the [facility]. No evidence of celiac disease. Hypothyroidism 04/16/2016 DX:Hypothyroidis m Pseudotumor cerebri DX:Pseudotum or cerebri; COMMENT: Presents with intermittent headaches lumboperitoneal shunt 200603-14-12: [facility] hosp with severe headache normal CSF pressure Dx with hyperthyroidism - Rx and much improved- F/U neuro PRN Graves' disease DX:Graves' disea se; COMMENT: Graves disease 05-06-12; methimazole 20mg bid Rash on methimazole and stopped 05-19-12- referred to adult endo for possible radioactive ablation- Ablation done Now with acquired HYPOthyroidism secondary to HUBBARD treatment for Graves; levothyroxine F/U 6 mon 4-14: seen- same dose F/U 6 mon [facility] Endocrinology, Edymouna Nilda Snoring 07/30/2017 DX:Snoring; COMM ENT: 07/2017 Home Sleep Study did not reveal sleep apnea. Synovial plica of knee 09/10/2011 DX:Synovi al plica of knee Obesity (BMI 30-39.9) 10/22/2018 DX:Obesity (BMI 30-39.9) ET (eustachian tube disorder) 11/10/2018 DX :ET (eustachian tube disorder); COMMENT: Right; follows with ENT Family History Medical History Relation Name Comments Brain cancer Father's side cousin Heart attack Maternal Grandfather Thyroid disease Maternal Grandmother Hypertension Mother's side 1 maternal gra ndmother, aunt and uncle Diabetes Mother's side 2 maternal gra ndmother, aunt and uncle Breast cancer Neg Hx Colon cancer Neg Hx Ovarian cancer Neg Hx Uterine cancer Neg Hx Relation Name Status Comments Father hx unknown Father's side Maternal Grandfather Maternal Grandmother Mother's side 1 Mother's side 2 Social History Tobacco Use Types Packs/Day Years Used Date Smoking Tobacco: Never Smokeless Tobacco: Never Alcohol Use Standard Drinks/Week Comments No 0 (1 standard drink = 0.6 oz pur e alcohol) Comments Unknown Sex and Gender Information Value Date Recorded Sex Assigned at Not on file Legal Sex Female 1:03 PM EST Gender Identity Not on file Sexual Orientation Not on file Obstetrics History Plan of Treatment Health Maintenance Due Date Last Done Comments Cervical Cancer Screening: Pap Smear 2014 HPV Vaccines (3 - 3-dose series) 07/29/2014 03/29/2014, 01/27/2014 DTaP,Tdap,and Td Vaccines (8 - Td or Tdap) 04/19/2019 04/19/2009, 09/20/2003, 06/24/2003, Additional history exists Cholesterol Screening (Lipid Panel) 09/11/2022 Depression Screening 09/11/2022 HIV Screening 09/11/2022 Hepatitis C Screening 09/11/2022 Social Influencers of Health Screening 09/11/2022 COVID-19 Vaccine ( season) 2024 Influenza Vaccine (Season Ended) 2025 11/20/2016, 07/15/2015 HIB Vaccines Completed 08/06/1994, 05/1993, 1993 Hepatitis B Vaccines Completed 09/15/1996, 04/10/1996, 01/21/1996 MMR Vaccines Completed 05/14/1997, 08/06/1994 IPV Vaccines Completed 05/24/1997, 07/15, 1993, Additional history exists Meningococcal ACWY Vaccine Aged Out 08/13/2007 N o longer eligible based on patient's age to complete this topic Hepatitis A Vaccines Aged Out No long er eligible based on patient's age to complete this topic Meningococcal B Vaccine Aged Out No l onger eligible based on patient's age to complete this topic Pneumococcal Vaccine: Pediatrics (0 to 5 Years) and At-Risk Patients (6 to 64 Years) Aged Out No longer eligible based on patient's age to complete this topic RSV Immunization Patients Under 20 months Aged Out No longer eligible based on patient's age to complete this topic Varicella Vaccines Aged Out No longer eligible based on patient's age to complete this topic Care Teams Form Maker Relationship Specialty Start Date End Date Zakia Hoffman MD PCP - General Internal Medicine 08/21/18
== END 2025-02-12 14:40 | disposition home or self-care (01) ==
LOC: HO.HMCH 13:57
DX: G43.909 Migraine, unspecified, not intractable, without status migrainosus (principal); E66.01 Morbid (severe) obesity due to excess calories; Z68.41 Body mass index [BMI] 40.0-44.9, adult; K76.0 Fatty (change of) liver, not elsewhere classified; R79.89 Other specified abnormal findings of blood chemistry; G93.2 Benign intracranial hypertension; E03.9 Hypothyroidism, unspecified; E28.2 Polycystic ovarian syndrome

== ENCOUNTER → 2025-02-12 13:56 | Outpatient (BNVA) | payer OTHER, SELFPAY | DX: G43.909 Migraine, unspecified, not intractable, without status migrainosus (principal); E66.01 Morbid (severe) obesity due to excess calories; Z68.41 Body mass index [BMI] 40.0-44.9, adult; K76.0 Fatty (change of) liver, not elsewhere classified; E55.9 Vitamin D deficiency, unspecified; G93.2 Benign intracranial hypertension; E03.9 Hypothyroidism, unspecified; E28.2 Polycystic ovarian syndrome; E11.9 Type 2 diabetes mellitus without complications; M06.9 Rheumatoid arthritis, unspecified | CPT/HCPCS: 96127 ==

== ENCOUNTER 2025-02-18 08:49 | Outpatient (REF) | payer OTHER, SELFPAY ==
[2025-02-18 08:59] LABS: MANUAL DIFF FLAG NO
--- OUTSIDE RECORDS SUMMARY | 2025-02-18 09:10 | XMS_ITS | Clinical Summary ---
Author Organization [facility] Address [address] [place] [address] Care Team Providers Care Card Scraper Name Role Phone Zakia Hoffman MD Primary Care Provider Surgical History Surgery Date Site/Laterality Comments OTHER SURGICAL HISTORY PROCEDURE: HISTORICAL SHUNT REVISION; COMMENT: Spinal shunt ESOPHAGOGASTRODUODENOSCOPY 2013 PROCEDURE: [place] EGD TRANSORAL BIOPSY SINGLE/[facility]IP[facility]; [facility]; normal with normal duodenal biopsies COLONOSCOPY W/ BIOPSIES 2013 PROCEDURE: [place] COLONOSCOPY W/BIOPSY SINGLE/MULTIPLE; [facility], lymphocytic colitis. OTHER SURGICAL HISTORY 2006 PROCEDURE: [place] EXC TUMOR SOFT TISSUE THIGH/KNEE SUBFASC 5 CM/>; COMMENT: Left OTHER SURGICAL HISTORY 2010 PROCEDURE: [place] EXC TUMOR SOFT TISSUE THIGH/KNEE SUBFASC 5 CM/>; COMMENT: Right CHOLECYSTECTOMY 2017 PROCEDURE: LAPAROSCOPY, CHOLECYSTECTOMY Medical History Medical History Date Comments Benign intracranial hypertension 08/06/2007 DX:Benign intracranial hypertension; COMMENT: LP shunt because of visual loss Lymphocytic colitis 09/02/2014 DX:Lymphocyt ic colitis; COMMENT: EGD, duodenal biopsies, colonoscopy, random colonic biopsies August,, Dr. Hayden Tyson, the [facility]. No evidence of celiac disease. Hypothyroidism 04/16/2016 [...] 4-14: seen- same dose F/U 6 mon [facility] Endocrinology, Edymouna Nilda Snoring 07/30/2017 DX:Snoring; [...] age to complete this topic Care Teams Card Scraper Relationship Specialty Start Date End Date Zakia Hoffman MD PCP - General Internal Medicine 08/21/18
--- OUTSIDE RECORDS SUMMARY | 2025-02-18 09:10 | XMS_ITS | Data Portability ---
Author Organization [facility] [address] Address [address] [place] [address] Assessment No assessment recorded. Plan of Treatment Reminders Order Date Submit Date Provider Last Modified By Organization Details Last Modified Time Details Appointments None recorded. Lab None recorded. Referral None recorded. Procedures None recorded. Surgeries None recorded. Imaging None recorded. Medication Orders amoxicillin 500 mg capsule 2022 023 [facility]/Pharmacy #[id number], [address] [facility] [place], [address], 19:08:36 Patient TargetsNo targets recorded. Patient Instructions Encounter Date Encounter Id Patient Instructions Last Modified By Organization Details Last Modified Time 05/10/2023 [id number] head or face pain: care instructions Not [...] and Address Organization Details Recorded Time Migraine 30822864 Active 2022 SWETA mann PA - [facility] 18:55:49 Hypothyroidism 63305938 Active 2022 [facility]n [facility] - [facility] [...] Name and Address Organization Details Recorded Time 215482 Bactrim medicatio n Not available Not available Not available 05/10/2023 92123 9 RxNorm SWETA KATEH mann PA - [facility] 18:54:56 126155 Substance with sulfonami de structure and antibacte rial mechanism of action (substanc e) medicatio n Not available Not available Not available 05/10/2023 82528 8003 SNOMED SWETA FOXDASHA mann PA - [...] Last Updated DateTime 160.02 cm 40.7 kg/m2 829239. 25 g 97.5 [degF] 18 /min 88 /min 88 % 88 % 116 mm[Hg] 80 mm[Hg] SWETA SANCHEZ - [facility] 18:59:28 Social History Question Answer Notes LastModified by Organizat ion Details LastModified Time Tobacco Smoking Status Never Smoker SWETA mann PA [facility] 05/10/2023 18:57:04 What Is Your Level [...] SNOMED-CT Code Diagnosis ICD10 Code Diagnosis Note [id number] [place] [address] 01/14/2021 11:23:19 01/14/2021 12:04:51 [id number] [address] [place] [address] 03/20/2018 18:42:13 03/20/2018 19:48:40 [id number] Mendez Spaulding [facility] [address] [facility] [address] [place] [address] 05/10/2023 18:31:52 05/10/2023 19:11:55 Dental abscess 967581116 K04.7 Health Concerns Section Related Observation LastModified by Organization Detai ls LastModified Time None Recorded Concern Status LastModified by Organization Details LastModified Time None Recorded Advance Directives Directive None Recorded Payers Insurance Date Sequence Insurance Name Policy Number Policy Church Covered Member ID Church Member ID Guarantor Name 05/10/2023 2 [facility] Marilynn Henry [id number] Marilynn Nicholas-Anita artagena 07/31/2023 1 [facility] (MEDICAID HMO) [id number] [facility] rtagena [id number] Marilynn Nicholas-Anita artagena 07/31/2023 1 [employer] - OPEN ACCESS PLUS Marilynn Henry [id number] Marilynn Nicholas-C artagena 07/31/2023 1 [employer] [id number] Marilynn Henry [id number] Marilynn Nicholas-Anita artagena Notes Date Note Type Note Provider Name [...] Spaulding NP [address] [place], [address], PA - [facility] 05/10/2023 19:09:10 OBGyn Episode No OBEpisode recorded.
[2025-02-18 09:27] LABS: Basophils Percent Auto 0.3 % (0-2); Eosinophils Percent Auto 0.5 % (0-4); Hematocrit 43.4 % (37.0-47.0); Hemoglobin 15.1 g/dl (12.0-16.0); Imm Gran Abs Auto 0.05 X10*3/uL (0.00-0.03); Imm Gran Pct Auto 0.6 % (0.0-0.4); Lymphocytes Absolute Auto 1.7 X10*3/uL (1.2-4.9); Lymphocytes Percent Auto 19.5 % (20-40); Mean Corpuscular HGB Conc 34.8 g/dl (31.0-35.0); Mean Corpuscular Hemoglobin 29.5 pg (27.0-33.0); Mean Corpuscular Volume 84.9 fL (80.0-98.0); Mean Platelet Volume 11.3 fL (9.4-12.3); Monocytes Absolute Auto 0.5 X10*3/uL (0.1-1.2); Monocytes Percent Auto 5.2 % (2-11); Neutrophils Absolute Auto 6.4 x10*3/uL (2.0-8.3); Neutrophils Percent Auto 73.9 % (45-73); Platelet Count 258 X10*3/uL (160-400); Red Blood Count 5.11 X10*6/uL (4.20-5.50); White Blood Count 8.7 X10*3/uL (4.8-10.8)
[2025-02-18 09:39] LABS: Estimated Average Glucose 91 mg/dL; Hemoglobin A1C 111.9883 umol/L; Hemoglobin A1c % 4.8 % (<6.0); Total Hemoglobin (HGBA1C) 3869.0658 umol/L
[2025-02-18 10:04] LABS: Alanine Aminotransferase 31 U/L (0-31); Albumin Level 4.2 g/dL (3.5-5.0); Alkaline Phosphatase 100 U/L (39-117); Anion Gap 8 (12-20); Aspartate Amino Transferase 29 U/L (5-31); Blood Urea Nitrogen 8 mg/dL (9-16); Calcium 9.2 mg/dL (8.4-10.2); Carbon Dioxide 23 mmol/L (22-29); Chloride 111 mmol/L (96-108); Cholesterol 142 mg/dL (<200); Estimated Glomerular Filt Rate > 60; Glucose Random 95 mg/dL (60-115); HDL Cholesterol 53 mg/dL (>40); LDL Cholesterol Calculated 74 mg/dL (<100); Potassium 3.8 mmol/L (3.3-5.1); Sodium 138 mmol/L (135-145); Triglycerides 75 mg/dL (<150)
[2025-02-18 10:24] LABS: Folate 6.1 ng/mL (> or = 4.0); Free T4 (Free Thyroxine) 1.17 ng/dL (0.71-1.85); TSH reflex Free T4 4.77 uIU/mL (0.32-4.0); Vitamin B12 621 pg/mL (200-900); Vitamin D 25-OH Total 21.4 ng/mL (>30)
== END 2025-02-18 08:50 | disposition home or self-care (01) ==
LOC: HO.LAB 08:49
DX: Z00.00 Encounter for general adult medical examination without abnormal findings (principal); E28.2 Polycystic ovarian syndrome; Z13.220 Encounter for screening for lipoid disorders; Z13.6 Encounter for screening for cardiovascular disorders; Z13.1 Encounter for screening for diabetes mellitus
CPT/HCPCS: 36415; 80053; 80061; 82306; 82607; 82746; 83036; 84439; 84443; 85025

== ENCOUNTER 2025-03-16 08:50 | Outpatient (REF) | payer OTHER, SELFPAY ==
--- OUTSIDE RECORDS SUMMARY | 2025-03-16 09:26 | XMS_ITS | Clinical Summary ---
Author Organization [facility] Address [address] [place] [address] Care Team Providers Care Director Process Name Role Phone Zakia Hoffman MD Primary Care Provider Surgical History Surgery Date Site/Laterality Comments OTHER SURGICAL HISTORY PROCEDURE: HISTORICAL SHUNT REVISION; COMMENT: Spinal shunt ESOPHAGOGASTRODUODENOSCOPY 2013 PROCEDURE: [place] EGD TRANSORAL BIOPSY SINGLE/MULTIPLE; [facility]; normal with normal duodenal biopsies COLONOSCOPY W/ BIOPSIES 2013 PROCEDURE: [place] COLONOSCOPY W/BIOPSY SINGLE/MULTIPLE; COM[facility], lymphocytic colitis. OTHER SURGICAL HISTORY 2006 PROCEDURE: [place] EXC TUMOR SOFT TISSUE THIGH/KNEE SUBFASC 5 CM/>; COMMENT: Left OTHER SURGICAL HISTORY 2010 PROCEDURE: [place] EXC TUMOR SOFT TISSUE THIGH/KNEE SUBFASC 5 CM/>; COMMENT: Right CHOLECYSTECTOMY 2017 PROCEDURE: LAPAROSCOPY, CHOLECYSTECTOMY Medical History Medical History Date Comments Benign intracranial hypertension 08/06/2007 DX:Benign intracranial hypertension; COMMENT: LP shunt because of visual loss Lymphocytic colitis 09/02/2014 DX:Lymphocyt ic colitis; COMMENT: EGD, duodenal biopsies, colonoscopy, random colonic biopsies August,, Dr. Hayden Tyson, the [facility]. No evidence of celiac disease. Hypothyroidism [...] 4-14: seen- same dose F/U 6 mon [facility] Endocrinology, Edymouna Nilda Snoring 07/30/2017 DX:Snoring; COMM [...] age to complete this topic Care Teams Director Process Relationship Specialty Start Date End Date Zakia Hoffman MD PCP - General Internal Medicine 08/21/18
[2025-03-16 10:41] LABS: Anion Gap 10 (12-20); Blood Urea Nitrogen 10 mg/dL (9-16); Calcium 9.2 mg/dL (8.4-10.2); Carbon Dioxide 22 mmol/L (22-29); Chloride 110 mmol/L (96-108); Estimated Glomerular Filt Rate > 60; Glucose Random 75 mg/dL (60-115); Potassium 3.6 mmol/L (3.3-5.1); Sodium 138 mmol/L (135-145)
[2025-03-16 10:59] LABS: Free T4 (Free Thyroxine) 1.32 ng/dL (0.71-1.85); TSH reflex Free T4 0.38 uIU/mL (0.32-4.0)
== END 2025-03-16 08:51 | disposition home or self-care (01) ==
LOC: HO.LAB 08:50
DX: R79.89 Other specified abnormal findings of blood chemistry (principal); E66.01 Morbid (severe) obesity due to excess calories; Z68.41 Body mass index [BMI] 40.0-44.9, adult
CPT/HCPCS: 36415; 80048; 84439; 84443

== ENCOUNTER 2025-04-21 15:52 | Outpatient (AMB) | payer OTHER, SELFPAY ==
--- OUTSIDE RECORDS SUMMARY | 2025-04-21 15:56 | XMS_ITS | Patient Health Record ---
Author Organization [facility] Address [address] [place] [id number] Care Team Providers Care Sampler Pickup Name Role Phone CRYSTAL Bill Unavailable [phone] Reason For Referral No Information Medications Medication SIG (Take, Route, Fr equency, Duration) Notes Start Date End Date Status Control Pills Active Levothyroxine Active Plan Of Treatment No Information Insurance Providers Payer Name Payer Address Payer Phone Subscriber Number Group Number Insured Name Patient Relationship to Insured Coverage Start Date Coverage End Date [facility] 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
--- OUTSIDE RECORDS SUMMARY | 2025-04-21 15:56 | XMS_ITS | Clinical Summary ---
Author Organization [facility] Address [address] [place] [address] Care Team Providers Care Pig Handler Name Role Phone Zakia Hoffman MD Primary Care Provider Surgical History Surgery Date Site/Laterality Comments OTHER SURGICAL HISTORY PROCEDURE: HISTORICAL SHUNT REVISION; COMMENT: Spinal shunt ESOPHAGOGASTRODUODENOSCOPY 2013 PROCEDURE: [place] EGD TRANSORAL BIOPSY SINGLE/MULTIPLE; [facility]; normal with normal duodenal biopsies COLONOSCOPY W/ BIOPSIES 2013 PROCEDURE: [place] COLONOSCOPY W/BIOPSY SINGLE/MULTIPLE; [facility], lymphocytic colitis. OTHER SURGICAL HISTORY 2006 PROCEDURE: [place] EXC TUMOR SOFT TISSUE THIGH/KNEE SUBFASC 5 CM/>; COMMENT: Left OTHER SURGICAL HISTORY 2010 PROCEDURE: [place] EXC TUMOR SOFT TISSUE THIGH/KNEE SUBFASC 5 CM/>; COMMENT: Right CHOLECYSTECTOMY 2017 PROCEDURE: LAPAROSCOPY, CHOLECYSTECTOMY Medical History Medical History Date Comments Benign intracranial hypertension 08/06/2007 DX:Benign intracranial hypertension; COMMENT: LP shunt because of visual loss Lymphocytic colitis 09/02/2014 DX:Lymphocyt ic colitis; COMMENT: EGD, duodenal biopsies, colonoscopy, random colonic biopsies August,, Dr. Hayden Tyson, the [facility]. No evidence of celiac disease. Hypothyroidism [...] 4-14: seen- same dose F/U 6 mon [facility] Endocrinology, Edymouna Nilda Snoring 07/30/2017 DX:Snoring; [...] COVID-19 Vaccine ( season) 2024 Influenza Vaccine (#1) 2025 11/20/2016, 2014 HIB Vaccines Completed 08/06/1994, 05/1993, 1993 Hepatitis [...] 5 Years) and At-Risk Patients (6 to 49 Years) Aged Out No longer eligible based on patient's age to complete this topic RSV Immunization Patients Under 20 months Aged Out No longer eligible based on patient's age to complete this topic Varicella Vaccines Aged Out No longer eligible based on patient's age to complete this topic Care Teams Pig Handler Relationship Specialty Start Date End Date Zakia Hoffman MD PCP - General Internal Medicine 08/21/18
--- OUTSIDE RECORDS SUMMARY | 2025-04-21 15:56 | XMS_ITS | Data Portability ---
Author Organization LAURA Cummins [facility], [address] Address [address] [place] [address] Assessment No assessment recorded. Plan of Treatment Reminders Order Date Submit Date Provider Last Modified By Organization Details Last Modified Time Details Appointments None recorded. Lab None recorded. Referral None recorded. Procedures None recorded. Surgeries None recorded. Imaging None recorded. Medication Orders amoxicillin 500 mg capsule 2022 023 [facility] #[id number], [address] [facility] , [place], [address], 19:08:36 Patient TargetsNo targets recorded. Patient Instructions Encounter Date Encounter Id Patient Instructions Last Modified By Organization Details Last Modified Time 05/10/2023 [id number] head or face pain: care instructions Not [...] and Address Organization Details Recorded Time Migraine [id number] Active 2022 SWETA mann [place] - [facility] 18:55:49 Hypothyroidism 54563613 Active 2022 [facility] Name and Address Organization Details Recorded Time 831049 Bactrim medicatio n Not available Not available Not available 05/10/2023 [id number] RxNorm SWETA mann PA - [facility] 18:54:56 [id number] Substance with sulfonami de structure and antibacte rial mechanism of action (substanc e) medicatio n Not available Not available Not available 05/10/2023 [id number] SNOMED SWETA FOXDASHA mann, [place] - [facility] 18:55:01 Medications Name [...] in Arterial blood by Pulse oximetry Systolic And Diastolic Provider Name and Address Organization Details Last Updated DateTime 3 160.02 cm 40.7 kg/m2 751221. 25 g 97.5 [degF] 18 /min 88 /min 88 % 88 % 116/80 mm[Hg] SWETA SANCHEZ [facility] 3 18:59:28 Social History Question Answer Notes LastModified by [employer] Details LastModified Time Tobacco Smoking Status Never Smoker SWETA mann PA [facility] 05/10/2023 18:57:04 Have You Had Direct Contact, Or Contact During Intimacy, With Monkeypox Rash, Scabs, Or Body Fluids From A Person With Monkeypox? No Information not available 05/10/2023 Have You Recently Traveled Abroad? No Information not available 05/10/2023 Are You Currently In School? No Information not available 05/10/2023 Sex: Unknown Functional Status Question Answer Note LastModified by [employer] Details LastModified Time Do you use any illicit or recreational drugs? No Information not available 05/10/2023 Do you or have you ever used any other forms of tobacco or nicotine? No Information not available 05/10/2023 What is your level of alcohol consumption? None Information not available 05/10/2023 Are you currently employed? Yes Information not available 05/10/2023 Mental Status None recorded. Family History Relationship [...] SNOMED-CT Code Diagnosis ICD10 Code Diagnosis Note [id number] [address] [place] [address] 01/14/2021 11:23:19 01/14/2021 12:04:51 [id number] [address] [place] [address] 03/20/2018 18:42:13 03/20/2018 19:48:40 [id number] Mendez Spaulding [place] [address] [address] [place] [address] 05/10/2023 18:31:52 05/10/2023 19:11:55 Dental abscess [id number] K04.7 Health Concerns Section Related Observation LastModified by Organization Detai ls LastModified Time None Recorded Concern Status LastModified by Organization Details LastModified Time None Recorded Advance Directives Directive None Recorded Payers Insurance Date Sequence Insurance Name Policy Number Policy Church Covered Member ID Church Member ID Guarantor Name 05/10/2023 2 DIAZ Voraagena [id number] Marilynn Nicholas-C artagena 07/31/2023 1 [facility] (MEDICAID HMO) [id number] Marilynn Kumar rtagena [id number] Marilynn Yu-C artagena 07/31/2023 1 [employer] Marilynn Henry [id number] Marilynn Yu-C artagena 07/31/2023 1 [employer] [id number] Marilynn Vroaagena [id number] Marilynn Yu-C artagena Notes Date Note Type Note Provider [...] Spaulding NP [address] [place], [address], [place] - [facility] 05/10/2023 19:09:10 OBGyn Episode No OBEpisode recorded.
--- NOTE | 2025-04-21 16:09 | MHC.PC.OV ---
Vital Signs 04/21/25 16:13 Height 5 ft 3 in Weight 214 lb 6 oz BMI 38.0 BP 108/66 Blood Pressure Location Lt brachial Position Sitting Pulse 95 Temp 97.1 F Temp Source Temporal Artery Scan Pulse Oximetry (%) 100 Oxygen Delivery Method Room Air Intake Visit Reasons: f/u weight loss Conveyor Line Battery Charger Required: No Accompanied by: Self / Same As Patient Allergies Sulfa (Sulfonamide Antibiotics) Allergy (Unknown, Verified 04/21/25 16:54) anaphylaxis Medication List - Last Reconciled 04/21/25 by Linda Dwyer PA-C acetazolamide ER 500 mg PO BID blood pressure test kit-large (Advocate Blood Pressure Monitor kit) As directed cholecalciferol (vitamin D3) 50 mcg PO DAILY diclofenac sodium 1% 1 ea topical QID erenumab-aooe (Aimovig Autoinjector) mg subcut levothyroxine 200 mcg PO DAILY semaglutide (weight loss) (Wegovy) 1 mg (0.5 mL) subcut Q7D Tobacco use date assessed: 04/21/25 Dental Screening Dental Screen Date: 04/21/25 Did you have a dental visit in the last 12 months?: No Did you have a dental problem in the last 6 months where you did not have access to dental care?: No Was dental information given to patient?: Yes HPI f/u weight loss HPI Details 29-year-old female with past medical history of diabetes mellitus, rheumatoid arthritis, hypothyroidism, morbid obesity, pseudotumor cerebri last seen 02/2025 coming in for follow up.? At her last visit Wegovy was initiated for weight loss. Presenting with a follow-up on weight management and medication adjustment. She has been on a weight loss medication since February 19, resulting in a 26-pound weight loss over two months. Side effects include tiredness, nausea, headaches, and diarrhea, especially after consuming certain foods. Currently on a 1.0 mg dose of the medication, started recently. Follows an anti-inflammatory diet and occasionally consumes energy drinks. Recent blood work for fibroid monitoring; liver tests were not completed. [facility] Medical History POTS (postural orthostatic tachycardia syndrome) Dental abscess Otitis media Ear pain History of recurrent ear infection Sinusitis Hypothyroidism Rheumatoid arthritis Surgical History History of surgery History of tumor History of removal of cyst History of cholecystectomy Family History Father No problems noted. Mother Rheumatoid arthritis Sarcoidosis COPD (chronic obstructive pulmonary disease) Thyroid nodule Family/Other Family history of lupus erythematosus Social History Household Members: Spouse and Children Housing: Apartment Alcohol intake: current Alcohol intake frequency: holidays/special occasions only Patient Tobacco Use Status: Never used Tobacco Tobacco use type: Cigarette e-Cigarette/Vaping Use: Never Used Second Hand Smoke Exposure: No service: No Current occupational status: employed Current occupation: N Cognitive needs: No Hearing needs: No Vision needs: No Questionnaire Thrive Questionnaire Date Thrive assessed: 04/21/25 I am a: Patient What is your living situation today?: I have a steady place to live Within the past 12 months, did the food you bought not last and you didn't have the money to get more?: Never true Within the past 12 months, did you worry whether your food would run out before you got money to buy more?: Never true Do you have trouble paying for medicines?: No Do you have trouble getting transportation to medical appointments?: No Do you have trouble paying your heating and electricity bill?: No Do you have trouble taking care of your child, family member or friend?: No Do you have trouble with day-to-day activities such as bathing, preparing meals, shopping, managing finances, etc.?: No Are you currently unemployed and looking for a job?: No Are you interested in more education?: No Please select the resources that you would like help with: None Currently or been in a relationship where the following occur: No concerns reported THRIVE Score: 0 NILESH-7 AMB Questionnaire NILESH-7 Date NILESH - 7 assessed: 04/21/25 Source: Developed by Drs. Bill Ayala, Grace Graves, Rod Michael and colleagues, with an educational trina from [employer]. Review of Systems Const Denies body aches, Denies chills, Denies fever(s), Denies headache(s) and Denies poor appetite Eyes Reports no additional complaints ENT Denies dizziness and Denies headache(s) Card Denies chest pain, Denies syncope, Denies lightheadedness and Denies dyspnea Resp Denies cough and Denies dyspnea GI Denies abdominal pain, Reports constipation, Reports diarrhea, Reports nausea and Denies vomiting Reports no additional complaints Musc Denies abnormal gait Skin/Breast Reports system reviewed and no additional complaints, except as documented Neuro Denies abnormal gait, Denies dizziness, Denies syncope and Denies headache(s) Psych Reports no additional complaints Physical exam (Primary Care) Vital Signs: Last Vital Signs Temp 97.1 F 04/21/25 16:13 Pulse 95 04/21/25 16:13 BP 108/66 04/21/25 16:13 Pulse Ox 100 04/21/25 16:13 Oxygen Delivery Method Room Air 04/21/25 16:13 BMI result Body Mass Index 38.0 Tobacco/Smoking Status: Tobacco use Status Tobacco use date assessed 04/21/25 04/21/25 16:16 Patient Tobacco Use Status Never used Tobacco 04/21/25 16:16 Tobacco use type Cigarette 04/21/25 16:16 e-Cigarette/Vaping Use Never Used 04/21/25 16:16 Thrive Assessment: Date of Thrive Assessment Date Thrive assessed 04/21/25 04/21/25 16:16 Currently or been in a relationship where the following occur: No concerns reported Const General: cooperative, healthy appearing, comfortable and no acute distress Orientation/consciousness: patient oriented x3 HENMT Head: Yes normocephalic Ears: hearing grossly normal bilaterally General nose exam: Normal external nose present Eyes General: appearance normal, both eyes and all related structures Conjunctivae: conjunctivae normal Neck Neck: Yes full ROM and Yes no lymphadenopathy Resp Effort & Inspection: normal respiratory effort Auscultation: clear to auscultation bilaterally, no crackles, no rales, no rhonchi and no wheezes Cardio Rate: regular rate Rhythm: regular rhythm Skin General skin exam: no rashes or lesions noted Neuro General: patient oriented x3 Gait exam (Neuro): Normal gait present Extrem General: Yes normal to inspection, Yes full ROM and No edema Psych Affect: normal affect Attitude: cooperative Insight: Good insight present (Psych) Judgement: Good judgement present (Psych) Coding Level of Care Code Est Pt Level 3 (13713) Diagnoses Morbid obesity with BMI of 40.0-44.9, adult E66.01; Z68.41 Fatty liver K76.0 Assessment & Plan Assessment & Plan (1) Morbid obesity with BMI of 40.0-44.9, adult: Code(s): E66.01 - Morbid (severe) obesity due to excess calories; Z68.41 - Body mass index [BMI] 40.0-44.9, adult Category: Medical Plan: Healthy diet and regular exercise is encouraged. Noted 26 lb weight loss since last visit. Plan to repeat liver test to ensure medication has been cleared appropriately and no damage to liver (2) Fatty liver: Code(s): K76.0 - Fatty (change of) liver, not elsewhere classified Category: Medical Plan: Healthy diet and regular exercise is encouraged. continue to monitor labs Plan The patient will remain on the 1.0 mg dose of the weight loss medication, with monitoring for any persistent side effects. Adjustments to the dosage may be considered based on the patient's tolerance and side effect profile. Blood work will be repeated to include a liver panel, as previous tests were incomplete. The patient is encouraged to stay hydrated, particularly if diarrhea persists. A follow-up appointment is planned in two months to evaluate progress and ensure compliance with insurance requirements for ongoing prescription coverage. This note was constructed using voice recognition software. While every effort has been made to ensure accuracy and industrial furnace fabricator, still areas may have been included sometimes these areas may affect the content or meeting of the given symptoms. Total time spent caring for the patient today was 20 minutes. This includes time spent before the visit reviewing the chart, time spent during the visit, and time spent after the visit and documentation. Patient was informed and verbally consented to the use of an ambient scribe for clinic note documentation during this visit. Orders: Orders Liver Panel Today K76.0 - Fatty (change of) liver, not elsewhere classified
[2025-04-21 16:13] VITALS: BP 108/66; PULSE 95; TEMP 36.2; O2SAT 100; BMI 38.0
== END 2025-04-21 16:52 | disposition home or self-care (01) ==
LOC: HO.HMCH 15:53
DX: E66.01 Morbid (severe) obesity due to excess calories (principal); Z68.41 Body mass index [BMI] 40.0-44.9, adult; K76.0 Fatty (change of) liver, not elsewhere classified

== ENCOUNTER 2025-05-14 11:31 | Outpatient (REF) | payer OTHER, SELFPAY ==
--- OUTSIDE RECORDS SUMMARY | 2025-05-14 11:34 | XMS_ITS | Clinical Summary ---
Author Organization [facility] Address [address] [place] [address] Care Team Providers Care High Risk Case Manager Name Role Phone Zakia Hoffman MD Primary Care Provider Surgical History Surgery Date Site/Laterality Comments OTHER SURGICAL HISTORY PROCEDURE: HISTORICAL SHUNT REVISION; COMMENT: Spinal shunt ESOPHAGOGASTRODUODENOSCOPY 2013 PROCEDURE: MO EGD TRANSORAL BIOPSY SINGLE/[facility]IP[facility]; normal with normal duodenal biopsies COLONOSCOPY W/ BIOPSIES 2013 PROCEDURE: MO COLONOSCOPY W/BIOPSY SINGLE/MULTIPLE; [facility], lymphocytic colitis. OTHER SURGICAL HISTORY 2006 PROCEDURE: MO EXC TUMOR SOFT TISSUE THIGH/KNEE SUBFASC 5 CM/>; COMMENT: Left OTHER SURGICAL HISTORY 2010 PROCEDURE: MO EXC TUMOR SOFT TISSUE THIGH/KNEE SUBFASC 5 CM/>; COMMENT: Right CHOLECYSTECTOMY 2017 PROCEDURE: LAPAROSCOPY, CHOLECYSTECTOMY Medical History Medical History Date Comments Benign intracranial hypertension 08/06/2007 DX:Benign intracranial hypertension; COMMENT: LP shunt because of visual loss Lymphocytic colitis 09/02/2014 DX:Lymphocyt ic colitis; COMMENT: EGD, duodenal biopsies, colonoscopy, random colonic biopsies August,, Dr. Hayden Tyson, the [facility]. No evidence of celiac disease. Hypothyroidism [...] history exists Cholesterol Screening (Lipid Panel) 09/11/2022 HIV Screening 09/11/2022 Hepatitis C Screening 09/11/2022 Social Influencers of Health Screening 09/11/2022 COVID-19 Vaccine ( season) 2024 Depression Screening 10/14/2024 Influenza Vaccine (#1) 2025 11/20/2016, 2014 HIB [...] age to complete this topic Care Teams High Risk Case Manager Relationship Specialty Start Date End Date Zakia Hoffman MD PCP - General Internal Medicine 08/21/18
--- OUTSIDE RECORDS SUMMARY | 2025-05-14 11:34 | XMS_ITS | Patient Health Record ---
Author Organization [facility] Address [address] [place] [phone] Care Team Providers Care Marzipan Maker Name Role Phone CRYSTAL Bill Unavailable [phone] Reason For Referral No Information Medications Medication SIG (Take, Route, Fr equency, Duration) Notes Start Date End Date Status Control Pills Active Levothyroxine Active Plan Of Treatment No Information Insurance Providers Payer Name Payer Address Payer Phone Subscriber Number Group Number Insured Name Patient Relationship to Insured Coverage Start Date Coverage End Date [facility] 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
--- OUTSIDE RECORDS SUMMARY | 2025-05-14 11:34 | XMS_ITS | Encounter Summary ---
Author Organization [facility] Address [address] [place] [address] Care Team Providers Care Visual Design Lead Name Role Phone Penny Lyons MD Primary Care Provider UnavailDillan Chan MD Primary Care Provider Unavail able Omkar Kumar MD Primary Care Provider Unavaila Dillan Meza MD Primary Care Provider Unavail able Merced Mcconnell MD Primary Care Provider Un available Zakia Hoffman MD Primary Care Provider Unavail able Encounter Details Date Type Department Care Team Description 09/19/2007 Hospital Medical Records [address] [place] [address] Tara Lozano Social History Tobacco Use Types Packs/Day Years Used Date Smoking Tobacco: Never Smokeless Tobacco: Never Comments:mom smokes outside Alcohol Use Standard Drinks/Week Comments No 0 (1 standard drink = 0.6 oz pur e alcohol) Sex Assigned at Date Recorded Not on file documented as of this encounter Plan of Treatment Not on file documented as of this encounter Visit Diagnoses Not on filedocumented in this encounter Care Teams Visual Design Lead Relationship Specialty Start Date End Date Penny Lyons MD PCP - General 07/04/07 07/06/14 Dillan Khanna MD PCP - General Internal Medicine 07/07/14 10/09/15 Omkar Kumar MD PCP - General Internal Medicine 10/10/15 04/03/16 Dillan Khanna MD PCP - General Internal Medicine 04/04/16 07/14/17 Merced Mcconnell MD PCP - General Internal Medicine 07/15/17 Zakia Hoffman MD PCP - General Internal Medicine 08/21/18 documented as of this encounter
[2025-05-14 13:09] LABS: Alanine Aminotransferase 32 U/L (0-31); Albumin Level 4.5 g/dL (3.5-5.0); Alkaline Phosphatase 101 U/L (39-117); Aspartate Amino Transferase 25 U/L (5-31); Total Protein 8.0 g/dL (6.5-8.0)
== END 2025-05-14 11:32 | disposition home or self-care (01) ==
LOC: HO.LAB 11:31
DX: K76.0 Fatty (change of) liver, not elsewhere classified (principal)
CPT/HCPCS: 36415; 80076

== ENCOUNTER 2025-06-29 09:26 | Outpatient (AMB) | payer OTHER, SELFPAY ==
--- NOTE | 2025-06-29 09:38 | MHC.PC.OV ---
Vital Signs 06/29/25 09:39 Height 5 ft 3 in Weight 202 lb 6 oz BMI 35.8 BP 118/72 Blood Pressure Location Lt brachial Position Sitting Pulse 87 Pulse Oximetry (%) 94 Oxygen Delivery Method Room Air Intake Visit Reasons: f/u weight loss Tap Builder Required: No Accompanied by: Self / Same As Patient Allergies Sulfa (Sulfonamide Antibiotics) Allergy (Unknown, Verified 06/29/25 09:46) anaphylaxis Medication List - Last Reconciled 06/29/25 by Linda Dwyer PA-C acetazolamide 250 mg PO BID blood pressure test kit-large (Advocate Blood Pressure Monitor kit) As directed cholecalciferol (vitamin D3) 50 mcg PO DAILY diclofenac sodium 1% 1 ea topical QID erenumab-aooe (Aimovig Autoinjector) mg subcut levothyroxine 200 mcg PO DAILY semaglutide (weight loss) (Wegovy) 1 mg (0.5 mL) subcut Q7D Tobacco use date assessed: 04/21/25 Dental Screening Dental Screen Date: 06/29/25 Did you have a dental visit in the last 12 months?: No Did you have a dental problem in the last 6 months where you did not have access to dental care?: No Was dental information given to patient?: Patient has dentist HPI f/u weight loss HPI Details 30-year-old female with past medical history of diabetes mellitus, rheumatoid arthritis, hypothyroidism, morbid obesity, pseudotumor cerebri last seen 04/2025 coming in for follow up. Presenting with migraine headaches and menstrual irregularities. The patient had a severe month of headaches last month, possibly hormonal or due to medication changes. She resumed Diamox at 250 mg twice daily after attempting to wean off. The patient reports having her period three times last month, which is unusual. Regular periods resumed after starting Wegovy, but last month's frequency was abnormal. Weight loss and exercise changes are potential factors. The patient experienced restless leg symptoms last Saturday, described as a dull sensation without significant pain, isolated to one leg. This spontaneously resolved and denies any pain, swelling or numbness. The patient is on Wegovy for weight loss, aiming to reduce headache medication dependency. She has lost 12 pounds since the last visit and exercises regularly, although migraines have limited her activity. ON LICENSE OF [facility] Medical History POTS (postural orthostatic tachycardia syndrome) Dental abscess Otitis media Ear pain History of recurrent ear infection Sinusitis Hypothyroidism Rheumatoid arthritis Surgical History History of surgery History of tumor History of removal of cyst History of cholecystectomy Family History Father No problems noted. Mother Rheumatoid arthritis Sarcoidosis COPD (chronic obstructive pulmonary disease) Thyroid nodule Family/Other Family history of lupus erythematosus Social History Household Members: Spouse and Children Housing: Apartment Alcohol intake: current Alcohol intake frequency: holidays/special occasions only Patient Tobacco Use Status: Never used Tobacco Tobacco use type: Cigarette e-Cigarette/Vaping Use: Never Used Second Hand Smoke Exposure: No service: No Current occupational status: employed Current occupation: N Cognitive needs: No Hearing needs: No Vision needs: No Questionnaire Thrive Questionnaire Date Thrive assessed: 02/12/25 I am a: Patient What is your living situation today?: I have a steady place to live Within the past 12 months, did the food you bought not last and you didn't have the money to get more?: Never true Within the past 12 months, did you worry whether your food would run out before you got money to buy more?: Never true Do you have trouble paying for medicines?: No Do you have trouble getting transportation to medical appointments?: No Do you have trouble paying your heating and electricity bill?: No Do you have trouble taking care of your child, family member or friend?: No Do you have trouble with day-to-day activities such as bathing, preparing meals, shopping, managing finances, etc.?: No Are you currently unemployed and looking for a job?: No Are you interested in more education?: No Please select the resources that you would like help with: None Currently or been in a relationship where the following occur: No concerns reported THRIVE Score: 0 NILESH-7 AMB Questionnaire NILESH-7 Date NILESH - 7 assessed: 04/21/25 Source: Developed by Drs. Bill LGrace Bustos, Rod Michael and colleagues, with an educational trina from [employer]. Review of Systems Const Denies body aches, Denies chills, Denies fever(s), Reports headache(s) and Denies poor appetite Eyes Reports no additional complaints ENT Denies dizziness and Reports headache(s) Card Denies chest pain, Denies edema, Denies lightheadedness and Denies dyspnea Resp Denies cough and Denies dyspnea GI Denies abdominal pain, Reports constipation, Denies diarrhea, Denies nausea and Denies vomiting Reports no additional complaints Musc Reports no additional complaints and Denies abnormal gait Skin/Breast Reports system reviewed and no additional complaints, except as documented Neuro Denies abnormal gait, Denies dizziness and Reports headache(s) Psych Reports no additional complaints Physical exam (Primary Care) Vital Signs: Last Vital Signs Pulse 87 06/29/25 09:39 BP 118/72 06/29/25 09:39 Pulse Ox 94 06/29/25 09:39 Oxygen Delivery Method Room Air 06/29/25 09:39 BMI result Body Mass Index 35.8 Tobacco/Smoking Status: Tobacco use Status Tobacco use date assessed 04/21/25 06/29/25 09:43 Patient Tobacco Use Status Never used Tobacco 06/29/25 09:43 Tobacco use type Cigarette 06/29/25 09:43 e-Cigarette/Vaping Use Never Used 06/29/25 09:43 Thrive Assessment: Date of Thrive Assessment Date Thrive assessed 02/12/25 06/29/25 09:43 Currently or been in a relationship where the following occur: No concerns reported Const General: cooperative, healthy appearing, comfortable and no acute distress Orientation/consciousness: patient oriented x3 HENMT Head: Yes normocephalic Ears: hearing grossly normal bilaterally General nose exam: Normal external nose present Eyes General: appearance normal, both eyes and all related structures Conjunctivae: conjunctivae normal Neck Neck: Yes full ROM and Yes no lymphadenopathy Resp Effort & Inspection: normal respiratory effort Auscultation: clear to auscultation bilaterally, no crackles, no rales, no rhonchi and no wheezes Cardio Rate: regular rate Rhythm: regular rhythm Skin General skin exam: no rashes or lesions noted Neuro General: patient oriented x3 Gait exam (Neuro): Normal gait present Extrem General: Yes normal to inspection, Yes full ROM and No edema Psych Affect: normal affect Attitude: cooperative Insight: Good insight present (Psych) Judgement: Good judgement present (Psych) Coding Level of Care Code Est Pt Level 3 (61158) Diagnoses Morbid obesity with BMI of 40.0-44.9, adult E66.01; Z68.41 Fatty liver K76.0 Pseudotumor cerebri syndrome G93.2 Irregular menses N92.6 Assessment & Plan Assessment & Plan (1) Morbid obesity with BMI of 40.0-44.9, adult: Code(s): E66.01 - Morbid (severe) obesity due to excess calories; Z68.41 - Body mass index [BMI] 40.0-44.9, adult Category: Medical Plan: Healthy diet and regular exercise is encouraged. Noted 12 lb weight loss since last visit. Liver tests are stable. She is doing well in the 1 mg injection and plan to increase to 1.7 mg at this time. Follow up in 3 months (2) Fatty liver: Code(s): K76.0 - Fatty (change of) liver, not elsewhere classified Category: Medical Plan: Healthy diet and regular exercise is encouraged. Liver tests stable (3) Pseudotumor cerebri syndrome: Code(s): G93.2 - Benign intracranial hypertension Category: Medical Plan: For pseudotumor cerebri she is following with [facility] and was advised to wean off of acetazolamide. Patient decrease the dose from 500 mg b.i.d. to 250 mg b.i.d. and she will follow up with them in November. (4) Irregular menses: Code(s): N92.6 - Irregular menstruation, unspecified Category: Medical Plan: The patient is advised to monitor her menstrual cycles and symptoms, keeping a log of frequency and severity. She is scheduled to see gynecology in August, with a recommendation to seek an earlier appointment if possible. Plan This note was constructed using voice recognition software. While every effort has been made to ensure accuracy and frit mixer, still areas may have been included sometimes these areas may affect the content or meeting of the given symptoms. Total time spent caring for the patient today was 20 minutes. This includes time spent before the visit reviewing the chart, time spent during the visit, and time spent after the visit and documentation. Patient was informed and verbally consented to the use of an ambient scribe for clinic note documentation during this visit. Medications: New semaglutide (weight loss) (Wegovy) administer weeks 13 through 16 of therapy 1.7 mg (0.75 mL) subcut QWEEK 3 mL 0RF Discontinued semaglutide (weight loss) (Wegovy) Discontinued Reason: Patient no longer taking 1 mg (0.5 mL) subcut Q7D 2 mL 0RF
[2025-06-29 09:39] VITALS: BP 118/72; PULSE 87; O2SAT 94; BMI 35.8
--- OUTSIDE RECORDS SUMMARY | 2025-06-29 11:57 | XMS_ITS | Clinical Summary ---
Author Organization [facility] Address [address] [place] [address] Care Team Providers Care Counter Waiter Name Role Phone Zakia Hoffman MD Primary Care Provider Surgical History Surgery Date Site/Laterality Comments OTHER SURGICAL HISTORY PROCEDURE: HISTORICAL SHUNT REVISION; COMMENT: Spinal shunt ESOPHAGOGASTRODUODENOSCOPY 2013 PROCEDURE: [place] EGD TRANSORAL BIOPSY SINGLE/[facility]IP[facility]; [facility]; normal with normal duodenal biopsies COLONOSCOPY W/ BIOPSIES 2013 PROCEDURE: FL COLONOSCOPY W/BIOPSY SINGLE/MULTIPLE; [facility], lymphocytic colitis. OTHER SURGICAL HISTORY 2006 PROCEDURE: FL EXC TUMOR SOFT TISSUE THIGH/KNEE SUBFASC 5 CM/>; COMMENT: Left OTHER SURGICAL HISTORY 2010 PROCEDURE: FL EXC TUMOR SOFT TISSUE THIGH/KNEE SUBFASC 5 CM/>; COMMENT: Right CHOLECYSTECTOMY 2017 PROCEDURE: LAPAROSCOPY, CHOLECYSTECTOMY Medical History Medical History Date Comments Benign intracranial hypertension 08/06/2007 DX:Benign intracranial hypertension; COMMENT: LP shunt because of visual loss Lymphocytic colitis 09/02/2014 DX:Lymphocyt ic colitis; COMMENT: EGD, duodenal biopsies, colonoscopy, random colonic biopsies August,, Dr. Hayden Tyson, the [facility]. No evidence of celiac disease. Hypothyroidism [...] 4-14: seen- same dose F/U 6 mon [facility], Edymouna Nilda Snoring 07/30/2017 DX:Snoring; [...] 09/11/2022 Social Influencers of Health Screening 09/11/2022 Depression Screening 10/14/2024 COVID-19 Vaccine ( season) 2025 Influenza Vaccine (#1) 2025 11/20/2016, 2014 HIB [...] age to complete this topic Care Teams Counter Waiter Relationship Specialty Start Date End Date Zakia Hoffman MD PCP - General Internal Medicine 08/21/18
--- OUTSIDE RECORDS SUMMARY | 2025-06-29 11:57 | XMS_ITS | Patient Health Record ---
Author Organization [facility] Address [address] [place] [id number] Care Team Providers Care Iron Plastic Bullet Maker Name Role Phone CRYSTAL Bill Unavailable [phone] Reason For Referral No Information Medications Medication SIG (Take, Route, Fr equency, Duration) Notes Start Date End Date Status Control Pills Active Levothyroxine Active Plan Of Treatment No Information Insurance Providers Payer Name Payer Address Payer Phone Subscriber Number Group Number Insured Name Patient Relationship to Insured Coverage Start Date Coverage End Date [facility] 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
== END 2025-06-29 10:24 | disposition home or self-care (01) ==
LOC: HO.HMCH 09:27
DX: E66.01 Morbid (severe) obesity due to excess calories (principal); Z68.41 Body mass index [BMI] 40.0-44.9, adult; K76.0 Fatty (change of) liver, not elsewhere classified; G93.2 Benign intracranial hypertension; N92.6 Irregular menstruation, unspecified

== ENCOUNTER 2025-09-03 11:40 | Outpatient (AMB) | payer OTHER, SELFPAY ==
--- NOTE | 2025-09-03 11:41 | A.OFFVIS_ITS ---
Vital Signs 09/03/25 11:48 Height 5 ft 3 in Weight 195 lb BMI 34.5 BP 116/72 Intake Visit Reasons: New patient annual/PCOS Intake Note: Last pap smear per patient 1 year ago, normal hx. 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: 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 Present (Joy) Accompanied by: Self / Same As Patient Allergies Sulfa (Sulfonamide Antibiotics) Allergy (Unknown, Verified 09/03/25 11:46) anaphylaxis Medication List - Last Reconciled 09/03/25 by Liliane Nichols CNM acetazolamide 250 mg PO BID blood pressure test kit-large (Advocate Blood Pressure Monitor kit) As directed cholecalciferol (vitamin D3) 50 mcg PO DAILY diclofenac sodium 1% 1 ea topical QID erenumab-aooe (Aimovig Autoinjector) mg subcut levothyroxine 200 mcg PO DAILY semaglutide (weight loss) (Wegovy) 1.7 mg (0.75 mL) subcut QWEEK Is last menstrual period known: Yes Last menstrual period: 08/07/25 Post menopausal: No Patient : No HPI HPI New patient annual/PCOS: Details: 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 She is to go to [facility] to various practices there. 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 She has had Mirena IU S since about 8 weeks from the of her last child. Her periods had disappeared but she has had full premenstrual symptoms and menses since February. She has pseudotumor cerebri that was diagnosed because of her severe headaches she had increased fluid in her brain and behind her eyes and was hospitalized a few times and had spinal taps etc. she also has POTS syndrome. Her 1st she had a loss at 17 weeks because of what was later determined to be an incompetent cervix the 2nd pregnancies she was followed closely with weekly ultrasounds and when they started to see cervical changes at 20 weeks then they inserted a cerclage. They took the cerclage out at 36 weeks and the baby came at 38 weeks and 1 day. She did have gestational diabetes in that .. She started on Wegovy to deal with the weight loss because of all her other health concerns especially this her pseudotumor and the brain and migraine issues and she has lost about 50 lb so far she is working out hard at the gym she said that ever since she started working out she has started noticing heavier periods but it is also since she started having the weight loss. It is also 5 almost 6 years she very much does not want to have another especially as it was so high-risk and because of her health concerns so she needs a reliable method of control additionally since her periods have come back they have been lasting up to 10 days admittedly with about 5 to 6 days of bleeding and the rest of trail of end of menses. She has never been able to feel the string she says she did have an ultrasound at [facility] last year that showed that it was still in there she thought she had a Pap smear done last year but she checked her portal from [facility] in my presence and was unable to find 1 from last year or recently. We will do the Pap today as well. [facility] Medical History (Updated 09/03/25 @ 12:53 by Liliane Nichols CNM) Pseudotumor cerebri syndrome POTS (postural orthostatic tachycardia syndrome) Dental abscess Otitis media Ear pain History of recurrent ear infection Sinusitis Hypothyroidism Rheumatoid arthritis Surgical History History of surgery History of tumor History of removal of cyst History of cholecystectomy Family History Father No problems noted. Mother Rheumatoid arthritis Sarcoidosis COPD (chronic obstructive pulmonary disease) Thyroid nodule Family/Other Family history of lupus erythematosus Social History Household Members: Spouse and Children Housing: Apartment Alcohol intake: current Alcohol intake frequency: holidays/special occasions only Patient Tobacco Use Status: Never used Tobacco Tobacco use type: Cigarette e-Cigarette/Vaping Use: Never Used Second Hand Smoke Exposure: No Patient : No service: No Current occupational status: employed Current occupation: N Cognitive needs: No Hearing needs: No Vision needs: No Female Reproductive History Menstrual Age of Menarche: 9 Duration of menses: 8-10 days Date of last menstrual period: 08/07/25 control method: progestin IUCD (Mirena ) Total pregnancies: 2 Full term: 1 History of abnormal pap smear: No Physical Exam Vital Signs: Last Vital Signs BP 116/72 09/03/25 11:48 Const General: healthy appearing, comfortable, no acute distress, well developed and alert Nutritional Appearance: average body habitus Orientation/consciousness: patient oriented x3 Limitations: no limitations HEENT Head: Yes normocephalic Neck Neck: Yes normal visual inspection Chest Chest palpation & inspection: normal inspection of the chest Breast/axilla inspection: normal inspection of the breasts and normal inspection of the axillae Breast/axilla palpation: normal palpation of the breasts and normal palpation of the axillae Resp Effort & Inspection: normal respiratory effort GI Inspection: Yes normal to inspection, No Abdominal wall edema and No distended Palpation (GI): Soft to palpation and nontender Other: External exam within normal limits increased hirsute is Um noted. Vagina is pink and moist multiparous cervix seems to be scarred longitudinally at 12:00 possibly from cerclage but surface is smooth and pink and healthy appearing with normal mucosal surface. Cervix is long close thick mobile nontender uterus midposition mobile nontender adnexa nontender. Good muscle tone. I probed the cervix with a Cytobrush twice in an attempt to see if the string could become visible uncertain whether not I could feel the edge of the string with bimanual exam but it did not come into view even with the 2nd probing. General: Yes bladder normal to palpation External Female Exam: normal external appearance and normal appearance of the urethra Speculum Exam - Vagina: normal appearance of the vagina, normal palpation and normal vaginal discharge Speculum Exam - Cervix: normal appearance of the cervix, normal palpation and nontender Bimanual exam- vagina & uterus: normal bimanual exam, normal palpation, uterine size normal, bladder normal to palpation, consistency normal, normal palpation, uterine mobility normal, uterine shape normal, No Cervical tenderness present, non-tender and no cervical motion tenderness Bimanual Exam- Adnexa, other: normal adnexae, no masses, normal and No adnexal tenderness Neuro General: patient oriented x3 Assessment & Plan Assessment & Plan (1) PCOS (polycystic ovarian syndrome): Comment: Long-term diagnosis, has lab work from [facility] in her portal. Code(s): E28.2 - Polycystic ovarian syndrome Category: Medical (2) Hypothyroidism: Code(s): E03.9 - Hypothyroidism, unspecified Category: Medical (3) Pseudotumor cerebri syndrome: Code(s): G93.2 - Benign intracranial hypertension Category: Medical (4) Cervical cancer screening: Code(s): Z12.4 - Encounter for screening for malignant neoplasm of cervix Category: Medical (5) Presence of IUD: Comment: And has Mirena IU D in place since early 2019 heavy long menses and premenstrual symptoms have returned full on since starting weight loss last February. Recommend replacement string is not visible will verify presence with ultrasound then schedule replacement. Code(s): Z97.5 - Presence of (intrauterine) contraceptive device Category: Medical (6) Irregular menses: Code(s): N92.6 - Irregular menstruation, unspecified Category: Medical (7) Well woman exam with routine gynecological exam: Code(s): Z01.419 - Encounter for gynecological examination (general) (routine) without abnormal findings Category: Medical (8) Morbid obesity with BMI of 40.0-44.9, adult: Comment: Is working hard on weight loss successfully with healthy eating exercise and Wegovy, plans to continue.... Code(s): E66.01 - Morbid (severe) obesity due to excess calories; Z68.41 - Body mass index [BMI] 40.0-44.9, adult Category: Medical (9) control counseling: Comment: Has Mirena IU S in for almost 6 years full menstrual symptoms have returned since February. Very much needs Mirena for contraception discussed replacement, need to verify IUD placement w u/s. if string has become palpable we will replace at [facility] if not we will need to be given appointment at [facility] office. Code(s): Z30.09 - Encounter for other general counseling and advice on contraception Category: Medical Plan -----Discussed in this visit the following: healthy balanced diet, regular and consistent exercise, getting recommended health screens, doing the best she can for her particular health concerns, kegel exercises, pap smear screening and followup recommendations, mammography screening and SBE, normal changes in cyc les in her life stage--- . Discussed her history in detail she remembers issues in good detail discussed her PCOS her pseudotumor, her POTS syndrome her history of incompetent cervix and 17 week loss, her subsequent cerclage in a term , and her use of the Mirena for contraception which she very much needs because of her complex medical history congratulated on her hard work with her weight loss which will help her with diabetes prevention (history of gestational diabetes) and history of insulin resistance.. Unable to visualize the string though it may have been palpable unable to tease it out with Cytobrush x2. We will verify IUD placement with ultrasound. If it is still in place and if the string has become palpable to the patient, then we can replace the Mirena at [facility] with this CNM. If the string is still not palpable but is in place replacement we will need to take place with MD at the [facility] office. Patient and I will have a tele visit after the ultrasound if her insurance allows, to review the ultrasound results, and whether not she can feel the string, and make plan. I recommend condom use until the Mirena is replaced as it is possible that she may have returned to normal cycling and it is not guaranteed that the Mirena is working. Did discuss the very length of time that the Mirena can be used from 5-8 years and the changed recommendations. Orders: Orders US pelvic and transvaginal Today E03.9 - Hypothyroidism, unspecified, E28.2 - Polycystic ovarian syndrome, G93.2 - Benign intracranial hypertension, N92.6 - Irregular menstruation, unspecified, Z12.4 - Encounter for screening for malignant neoplasm of cervix, Z97.5 - Presence of (intrauterine) contraceptive device Coding Level of Care Code New Pt Prev Care 18-39yr([id number] Diagnoses PCOS (polycystic ovarian syndrome) E28.2 Hypothyroidism E03.9 Pseudotumor cerebri syndrome G93.2 Cervical cancer screening Z12.4 Presence of IUD Z97.5 Irregular menses N92.6 Well woman exam with routine gynecological exam Z01.419 Morbid obesity with BMI of 40.0-44.9, adult E66.01; Z68.41 control counseling Z30.09
[2025-09-03 11:48] VITALS: BP 116/72; BMI 34.5
--- OUTSIDE RECORDS SUMMARY | 2025-09-03 12:31 | XMS_ITS | Patient Health Record ---
Author Organization [facility] Address [address] [place] [phone] Care Team Providers Care Advanced Manufacturing Engineer Name Role Phone CRYSTAL Bill Unavailable [phone] Reason For Referral No Information Medications Medication SIG (Take, Route, Fr equency, Duration) Notes Start Date End Date Status Control Pills Active Levothyroxine Active Plan Of Treatment No Information Insurance Providers Payer Name Payer Address Payer Phone Subscriber Number Group Number Insured Name Patient Relationship to Insured Coverage Start Date Coverage End Date [facility] 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
--- OUTSIDE RECORDS SUMMARY | 2025-09-03 12:31 | XMS_ITS | Clinical Summary ---
Author Organization [facility] Address [address] [place] [address] Care Team Providers Care Ion Exchange Operator Name Role Phone Zakia Hoffman MD Primary Care Provider Surgical History Surgery Date Site/Laterality Comments OTHER SURGICAL HISTORY PROCEDURE: HISTORICAL SHUNT REVISION; COMMENT: Spinal shunt ESOPHAGOGASTRODUODENOSCOPY 2013 PROCEDURE: CT EGD TRANSORAL BIOPSY SINGLE/[facility]IP[facility]; [facility]; normal with normal duodenal biopsies COLONOSCOPY W/ BIOPSIES 2013 PROCEDURE: CT COLONOSCOPY W/BIOPSY SINGLE/MULTIPLE; [facility], lymphocytic colitis. OTHER SURGICAL HISTORY 2006 PROCEDURE: CT EXC TUMOR SOFT TISSUE THIGH/KNEE SUBFASC 5 CM/>; COMMENT: Left OTHER SURGICAL HISTORY 2010 PROCEDURE: CT EXC TUMOR SOFT TISSUE THIGH/KNEE SUBFASC 5 [...] 4-14: seen- same dose F/U 6 mon [facility]ology, Estuardo Nilda Snoring 07/30/2017 DX:Snoring; COMM ENT: 07/2017 [...] 04/19/2019 04/19/2009, 09/20/2003, 06/24/2003, Additional history exists Depression Screening 10/14/2024 COVID-19 Vaccine ( - 2024- season) 2025 Influenza Vaccine (#1) 2025 11/20/2016, 2014 RSV Immunization Adult Patients (1 - 1-dose 75+ series) 2068 HIB Vaccines Completed 08/06/1994, 05/1993, 1993 Hepatitis [...] age to complete this topic Care Teams Ion Exchange Operator Relationship Specialty Start Date End Date Zakia Hoffman MD PCP - General Internal Medicine 08/21/18
== END 2025-09-03 14:04 | disposition home or self-care (01) ==
LOC: HO.HWSM 11:40
PROVIDERS: Visit Provider Advanced Practice Midwife
DX: Z01.419 Encounter for gynecological examination (general) (routine) without abnormal findings (principal); E66.01 Morbid (severe) obesity due to excess calories; Z68.41 Body mass index [BMI] 40.0-44.9, adult; E28.2 Polycystic ovarian syndrome; E03.9 Hypothyroidism, unspecified; G93.2 Benign intracranial hypertension; Z97.5 Presence of (intrauterine) contraceptive device; N92.6 Irregular menstruation, unspecified; Z30.09 Encounter for other general counseling and advice on contraception
CPT/HCPCS: 99385; 99459

== ENCOUNTER 2025-09-03 11:40 | Outpatient (REF) | payer OTHER, SELFPAY ==
[2025-09-03 22:52] LABS: Bacterial Vaginosis PCR POSITIVE (Negative); Candida Group PCR DETECTED (Not Detect); Candida glab krusei PCR NOT DETECTED (Not Detect); Trichomonas vaginalis PCR NOT DETECTED (Not Detect)
[2025-09-03 23:24] LABS: CT PCR NOT DETECTED (Not Detect.); NG PCR NOT DETECTED (Not Detect.)
== END 2025-09-03 11:41 | disposition home or self-care (01) ==
LOC: HO.LNP 11:40
PROVIDERS: Visit Provider Advanced Practice Midwife
DX: Z01.419 Encounter for gynecological examination (general) (routine) without abnormal findings (principal); Z20.2 Contact with and (suspected) exposure to infections with a predominantly sexual mode of transmission; Z11.51 Encounter for screening for human papillomavirus (HPV); Z30.09 Encounter for other general counseling and advice on contraception; E66.01 Morbid (severe) obesity due to excess calories; E28.2 Polycystic ovarian syndrome; E03.9 Hypothyroidism, unspecified; G93.2 Benign intracranial hypertension; N92.6 Irregular menstruation, unspecified; Z68.41 Body mass index [BMI] 40.0-44.9, adult; Z97.5 Presence of (intrauterine) contraceptive device
CPT/HCPCS: 81515; 87491; 87591; 87626; 88175